=== PATIENT | male | born 1985 | race Caucasian/White ===

== ENCOUNTER 2020-03-26 15:25 | Inpatient (IN) | payer OTHER, MEDICAID, SELFPAY ==
[2020-03-26] VITALS (17 sets, daily range): BP systolic 113–147; BP diastolic 67–99; PULSE 55–103; RESP 15–23; TEMP 36.4–36.8; O2SAT 95–100; BMI 24.3
--- NOTE | 2020-03-26 16:12 | ED_ITS ---
HPI - Dizziness <Chrystal Weldon DO - Last Filed: 03/27/20 07:22> General Chief Complaint: Dizziness Stated Complaint: falling over cant stand Time Seen by Provider: 03/26/20 15:39 Source: patient Mode of arrival: Wheelchair Limitations: no limitations History of Present Illness HPI Narrative: Patient is a 34-year-old male who presents with dizziness. He has a history of IVDA both heroin and methamphetamines. He states he has been clean for 11 days and just got out of rehab. Last night around 7:45 p.m. he rolled over in bed got extremely dizzy. Now when he walks he feels extremely off balance. He denies any weakness he feels nauseated he has vomited a couple times. He denies any fever. However it is complicated because he is going through detox. He has been through detox few times in the past previously on Suboxone but not on any medications this time. Looking to go to a inpatient 4 month stay in [place]. If he remains still he is not dizzy. He also states the over the last 3 years he cannot walk or run without collapsing. He feels like his heart lb get short of breath he collapses. That is not new today. Resting and sitting in the emergency department he denies any shortness of breath. Related Data Home Medications Medication Instructions Recorded Confirmed No Known Home Medications 03/26/20 03/26/20 Allergies Allergy/AdvReac Type Severity Reaction Status Date / Time No Known Drug Allergies Allergy Verified 03/26/20 15:34 Review of Systems <DO Lauro West Last Filed: 03/27/20 07:22> Review of Systems ROS Unobtainable: All systems reviewed & are unremarkable except as noted in HPI and below Constitutional Constitutional: Denies chills, Denies fever(s), Denies lethargy and Denies weak ness Eyes Eyes: Denies blurry vision, Denies exophthalmos, Denies diplopia and Denies eye discharge ENT Ears, Nose, Mouth, and Throat: Denies change in voice, Denies vertigo, Denies neck pain and Denies sore throat Cardiovascular Cardiovascular: Reports as per HPI, Reports lightheadedness, Denies dyspnea and Reports dyspnea on exertion Respiratory Respiratory: Reports as per HPI, Denies cough, Denies dyspnea, Reports dyspnea on exertion and Denies wheezing Gastrointestinal Gastrointestinal: Reports nausea and Reports vomiting Musculoskeletal Musculoskeletal: Denies back pain and Denies neck pain Integumentary/Breasts Skin/Breast: Denies pruritus, Denies erythema, Denies rash and Denies wounds Neurologic Neurologic: Denies confusion, Denies vertigo and Denies weakness Psychiatric Psychiatric: Denies confusion Allergic/Immunologic Allergic/Immunologic: Denies wheezing Patient History <Chrystal Weldon DO - Last Filed: 03/27/20 07:22> Medical History (Updated 03/27/20 @ 00:59 by DELTA Buenrostro-PORFIRIO) Heroin use disorder, mild, in early remission, abuse History of intravenous drug use in remission Methamphetamine abuse in remission Wound, surgical, infected Surgical History (Updated 03/27/20 @ 00:52 by DELTA Buenrostro-PORFIRIO) History of incision and drainage Family History (Updated 03/27/20 @ 00:54 by DELTA Buenrostro-PORFIROI) Father Stroke Hypertension Hyperlipidemia Mother Congestive heart failure Diabetes mellitus Hyperlipidemia Hypertension Social History household members: family Smoking Status: Never smoker alcohol intake: never Smoking Status: Never smoker Substance Use Type: former substance user Exam <Chrystal Weldon DO - Last Filed: 03/27/20 07:22> Initial Vital Signs Initial Vital Signs: Vital Signs Temperature 97.6 F 03/26/20 15:31 Pulse Rate 103 H 03/26/20 15:31 Respiratory Rate 20 03/26/20 15:31 Blood Pressure 139/99 H 03/26/20 15:31 Pulse Oximetry 98 03/26/20 15:31 GENERAL: Alert young male HEENT: Head atraumatic,EOMI, pupils reactive, face symmetric, moist mucous membranes CARDIOVASCULAR: Regular rate and rhythm without murmurs, rubs or gallops. RESPIRATORY: Breath sounds equal bilaterally, no wheezes rales or rhonchi. ABDOMEN: Soft, nontender. Normoactive bowel sounds all 4 quadrants. No guarding or rebound. EXTREMITIES: Normal range of motion, no clubbing or edema. Neurovascularly i ntact NEUROLOGICAL: Alert and oriented x4.Normal gait and speech. Cranial nerves II through XII grossly intact. 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 <Adrian Rojas DO - Last Filed: 03/27/20 04:23> Initial Vital Signs Initial Vital Signs: Vital Signs Temperature 97.6 F 03/26/20 15:31 Pulse Rate 103 H 03/26/20 15:31 Respiratory Rate 20 03/26/20 15:31 Blood Pressure 139/99 H 03/26/20 15:31 Pulse Oximetry 98 03/26/20 15:31 Scores <Chrystal Weldon DO - Last Filed: 03/27/20 07:22> NIH Stroke Scale Level of Conciousness: Alert, keenly responsive Ask month/age: Answers both questions correctly. Open/close eyes, close hand: Performs both tasks correctly Best gaze horizontal: Normal Visual schwartz: No visual loss Facial palsy: Normal symetrical movement Left arm drift: Drifts down, not to bed Right arm drift: No drift for full 10 sec Left leg drift: No drift for full 5 sec Right leg drift: No drift for full 5 sec Limb ataxia: Present in one limb Sensory on face/arms/legs: Normal, no sensory loss Best language: No aphasia, normal Dysarthria: Normal Extinction or inattention: No abnormality Total NIH Stroke scale score: 2 Course <Chrystal Weldon, DO - Last Filed: 03/27/20 07:22> Orders Ordered: Acetaminophen (Acetaminophen 325 Mg Tablet) 650 mg PO Q6HR PRN PRN Reason: Fever/Mild Pain (1-3) Aspirin (Aspirin Ec 81 Mg Tablet) 81 mg PO DAILY [facility] Atorvastatin Calcium (Atorvastatin 20 Mg Tablet) 80 mg PO BEDTIME [facility] Last Admin: 03/26/20 23:57 Dose: 80 mg Documented by: Calcium Carbonate (Calcium Carbonate 500 Mg Tab) 1,000 mg PO Q4HR PRN PRN Reason: Dyspepsia Clopidogrel Bisulfate (Clopidogrel 75 Mg Tablet) 75 mg PO DAILY [facility] Docusate Sodium (Docusate 100 Mg Capsule) 100 mg PO BID PRN PRN Reason: constipation Sodium Chloride (Normal Saline 0.9%) 1,000 mls @ 1,000 mls/hr IV CONT [facility] Last Infusion: 03/26/20 19:50 Dose: Infused Documented by: Naloxone HCl (Naloxone 0.4 Mg/Ml Vial) 0.2 mg IV Q2MIN PRN PRN Reason: Opiate Reversal Ondansetron HCl (Ondansetron 4 Mg Odt) 4 mg PO Q8HR PRN PRN Reason: Nausea And Vomiting Oxycodone/Acetaminophen (Oxycodone/Acetaminophen 5/325 Tablet) 1 tab PO Q4HR PRN PRN Reason: Pain, Moderate (4-6) Sennosides (Sennosides 8.6 Mg Tablet) 17.2 mg PO BEDTIME PRN PRN Reason: constipation Sodium Chloride (Sodium Chloride 0.9% Flush) 10 ml IV PRN PRN PRN Reason: Flush Sodium Chloride (Sodium Chloride 0.9% Flush) 10 ml IV BID NELY Discontinued Medications Acetaminophen (Acetaminophen 325 Mg Tablet) 975 mg PO NOW ONE Stop: 03/26/20 18:51 Last Admin: 03/26/20 19:09 Dose: 975 mg Documented by: Acetaminophen (Acetaminophen 325 Mg Tablet) 650 mg PO Q6HR PRN PRN Reason: Pain, Mild (1-3) Aspirin (Aspirin 81 Mg Chew Tab) 324 mg PO NOW ONE Stop: 03/26/20 18:08 Last Admin: 03/26/20 18:51 Dose: 324 mg Documented by: Lorazepam (Lorazepam 2 Mg/Ml Inj) 1 mg IV NOW ONE Stop: 03/26/20 18:51 Last Admin: 03/26/20 19:09 Dose: 1 mg Documented by: Meclizine HCl (Meclizine Hcl 12.5 Mg Tablet) 25 mg PO NOW ONE Stop: 03/26/20 16:13 Last Admin: 03/26/20 17:30 Dose: Not Given Documented by: Ondansetron HCl (Ondansetron 4 Mg/2 Ml Inj) 4 mg IV NOW ONE Stop: 03/26/20 16:13 Last Admin: 03/26/20 18:52 Dose: 4 mg Documented by: Vital Signs Vital signs: Vital Signs - 8 hr 03/26/20 20:30 03/26/20 20:38 03/26/20 21:00 Pulse Rate 64 62 65 Blood Pressure 123/91 H 113/68 114/67 Pulse Oximetry 100 100 100 03/26/20 21:30 03/26/20 22:00 03/26/20 22:01 Pulse Rate 58 L 56 L 55 L Blood Pressure 131/90 119/77 Pulse Oximetry 100 100 100 <Adrian Rojas, DO - Last Filed: 03/27/20 04:23> Course Course Narrative: Received from Dr. Weldon to follow up on MRI. I did not get a chance to examine the patient before going upstairs, but i did follow up on the MRI and relay findings to hospitalist who was happy to accept. Orders Ordered: Acetaminophen (Acetaminophen 325 Mg Tablet) 650 mg PO Q6HR PRN PRN Reason: Fever/Mild Pain (1-3) Aspirin (Aspirin Ec 81 Mg Tablet) 81 mg PO DAILY [facility] Atorvastatin Calcium (Atorvastatin 20 Mg Tablet) 80 mg PO BEDTIME [facility] Last Admin: 03/26/20 23:57 Dose: 80 mg Documented by: Calcium Carbonate (Calcium Carbonate 500 Mg Tab) 1,000 mg PO Q4HR PRN PRN Reason: Dyspepsia Clopidogrel Bisulfate (Clopidogrel 75 Mg Tablet) 75 mg PO DAILY [facility] Docusate Sodium (Docusate 100 Mg Capsule) 100 mg PO BID PRN PRN Reason: constipation Sodium Chloride (Normal Saline 0.9%) 1,000 mls @ 1,000 mls/hr IV CONT [facility] Last Infusion: 03/26/20 19:50 Dose: Infused Documented by: Naloxone HCl (Naloxone 0.4 Mg/Ml Vial) 0.2 mg IV Q2MIN PRN PRN Reason: Opiate Reversal Ondansetron HCl (Ondansetron 4 Mg Odt) 4 mg PO Q8HR PRN PRN Reason: Nausea And Vomiting Oxycodone/Acetaminophen (Oxycodone/Acetaminophen 5/325 Tablet) 1 tab PO Q4HR PRN PRN Reason: Pain, Moderate (4-6) Sennosides (Sennosides 8.6 Mg Tablet) 17.2 mg PO BEDTIME PRN PRN Reason: constipation Sodium Chloride (Sodium Chloride 0.9% Flush) 10 ml IV PRN PRN PRN Reason: Flush Sodium Chloride (Sodium Chloride 0.9% Flush) 10 ml IV BID [facility] Discontinued Medications Acetaminophen (Acetaminophen 325 Mg Tablet) 975 mg PO NOW ONE Stop: 03/26/20 18:51 Last Admin: 03/26/20 19:09 Dose: 975 mg Documented by: Acetaminophen (Acetaminophen 325 Mg Tablet) 650 mg PO Q6HR PRN PRN Reason: Pain, Mild (1-3) Aspirin (Aspirin 81 Mg Chew Tab) 324 mg PO NOW ONE Stop: 03/26/20 18:08 Last Admin: 03/26/20 18:51 Dose: 324 mg Documented by: Lorazepam (Lorazepam 2 Mg/Ml Inj) 1 mg IV NOW ONE Stop: 03/26/20 18:51 Last Admin: 03/26/20 19:09 Dose: 1 mg Documented by: Meclizine HCl (Meclizine Hcl 12.5 Mg Tablet) 25 mg PO NOW ONE Stop: 03/26/20 16:13 Last Admin: 03/26/20 17:30 Dose: Not Given Documented by: Ondansetron HCl (Ondansetron 4 Mg/2 Ml Inj) 4 mg IV NOW ONE Stop: 03/26/20 16:13 Last Admin: 03/26/20 18:52 Dose: 4 mg Documented by: Vital Signs Vital signs: Vital Signs - 8 hr 03/26/20 20:30 03/26/20 20:38 03/26/20 21:00 Pulse Rate 64 62 65 Blood Pressure 123/91 H 113/68 114/67 Pulse Oximetry 100 100 100 03/26/20 21:30 03/26/20 22:00 03/26/20 22:01 Pulse Rate 58 L 56 L 55 L Blood Pressure 131/90 119/77 Pulse Oximetry 100 100 100 MDM - Dizziness <Chrystal Weldon, - Last Filed: 03/27/20 07:22> Lab Data Attestation: I reviewed the patient's lab results. Result diagrams: 03/26/20 17:00 03/26/20 17:00 Labs: Lab Results 03/26/20 03/26/20 03/26/20 Range/Units 00:13 17:00 17:00 WBC 8.6 (4.5-11.0) X10^3/uL RBC 5.23 (4.5-5.9) X10^6/uL Hgb 15.9 (13.5-17.5) g/dL Hct 45.5 (41-53) % MCV 87.1 (80-100) fL MCH 30.5 (26-34) PG MCHC 35.0 (30-36) % RDW 13.2 (11.6-14.8) % Plt Count 314 (150-400) X10^3/uL Neut % (Auto) 73.3 (50-75) % Lymph % (Auto) 18.5 L (25-40) % [place] % (Auto) 6.9 (3-14) % Eos % (Auto) 0.7 L (2-4) % Baso % (Auto) 0.6 (0-2) % Neut # (Auto) 6300 (4922-5135) /uL Lymph # (Auto) 1600 (8599-8255) /uL [place] # (Auto) 600 (0-900) /uL Eos # (Auto) 100 (0-450) /uL Baso # (Auto) 0 (0-100) /uL PT 12.7 (10.1-12.7) SECONDS INR 1.1 (0.9-1.3) APTT 31 (26.4-36.2) SECONDS D-Dimer < 200 (<230) ng/mL ABG pH 7.41 (7.35-7.45) ABG pCO2 37.9 (35-45) mmHg ABG pO2 103 H (80-100) mmHg ABG HCO3 24 (22-26) mmol/L ABG Total CO2 25 (21-31) mmol/L ABG O2 Saturation 98 (95-100) % ABG Base Excess -1.0 (-2-2) mmol/L FiO2 21 Sodium (137-145) mmol/L Potassium (3.4-5.1) mmol/L Chloride (98-107) mmol/L Carbon Dioxide (22-32) mmol/L BUN (9-20) mg/dL Creatinine (0.66-1.25) mg/dL Estimated GFR (>60) mL/min BUN/Creatinine Ratio (6-22) Glucose (70-100) mg/dL Hemoglobin A1c (4.0-6.0) % Lactate (0.7-2.1) mmol/L Calcium (8.4-10.2) mg/dL Total Bilirubin (0.2-1.3) mg/dL AST (17-59) IU/L ALT (<50) IU/L Alkaline Phosphatase (38-126) U/L Total Creatine Kinase (55-170) U/L CK-MB (CK-2) CK-MB (CK-2) Rel Index Troponin I (0.01-0.034) ng/mL Total Protein (6.3-8.2) g/dL Albumin (3.5-5.0) g/dL Globulin (1.7-4.1) g/dL Albumin/Globulin Ratio (1.0-2.8) TSH (0.47-4.68) uIU/mL U Opiates 300ng/mL cut (Negative) Ur Oxycodone Screen (Negative) Urine Methadone Screen (Negative) Ur Barbiturates Screen (Negative) U Tricyclic Antidepress (Negative) Ur Phencyclidine Scrn (Negative) Ur Amphetamines Screen (Negative) U Methamphetamines Scrn (Negative) Ur MDMA Scrn (Ecstasy) (Negative) U Benzodiazepines Scrn (Negative) Urine Cocaine Screen (Negative) U Marijuana (THC) Screen (Negative) COVID-19 PCR (Negative) 03/26/20 03/26/20 03/26/20 Range/Units 17:00 17:00 17:00 WBC (4.5-11.0) X10^3/uL RBC (4.5-5.9) X10^6/uL Hgb (13.5-17.5) g/dL Hct (41-53) % MCV (80-100) fL MCH (26-34) PG MCHC (30-36) % RDW (11.6-14.8) % Plt Count (150-400) X10^3/uL Neut % (Auto) (50-75) % Lymph % (Auto) (25-40) % [place] % (Auto) (3-14) % Eos % (Auto) (2-4) % Baso % (Auto) (0-2) % Neut # (Auto) (0882-1713) /uL Lymph # (Auto) (4080-9198) /uL [place] # (Auto) (0-900) /uL Eos # (Auto) (0-450) /uL Baso # (Auto) (0-100) /uL PT (10.1-12.7) SECONDS INR (0.9-1.3) APTT (26.4-36.2) SECONDS D-Dimer (<230) ng/mL ABG pH (7.35-7.45) ABG pCO2 (35-45) mmHg ABG pO2 (80-100) mmHg ABG HCO3 (22-26) mmol/L ABG Total CO2 (21-31) mmol/L ABG O2 Saturation (95-100) % ABG Base Excess (-2-2) mmol/L FiO2 Sodium 139 (137-145) mmol/L Potassium 3.9 (3.4-5.1) mmol/L Chloride 103 (98-107) mmol/L Carbon Dioxide 32 (22-32) mmol/L BUN 15 (9-20) mg/dL Creatinine 0.76 (0.66-1.25) mg/dL Estimated GFR > 60.0 (>60) mL/min BUN/Creatinine Ratio 19.7 (6-22) Glucose 120 H (70-100) mg/dL Hemoglobin A1c 5.2 (4.0-6.0) % Lactate 1.9 (0.7-2.1) mmol/L Calcium 9.2 (8.4-10.2) mg/dL Total Bilirubin 0.9 (0.2-1.3) mg/dL AST 24 (17-59) IU/L ALT 22 (<50) IU/L Alkaline Phosphatase 73 (38-126) U/L Total Creatine Kinase 45 L (55-170) U/L CK-MB (CK-2) TNP CK-MB (CK-2) Rel Index TNP Troponin I < 0.012 (0.01-0.034) ng/mL Total Protein 8.6 H (6.3-8.2) g/dL Albumin 4.5 (3.5-5.0) g/dL Globulin 4.1 (1.7-4.1) g/dL Albumin/Globulin Ratio 1.1 (1.0-2.8) TSH (0.47-4.68) uIU/mL U Opiates 300ng/mL cut (Negative) Ur Oxycodone Screen (Negative) Urine Methadone Screen (Negative) Ur Barbiturates Screen (Negative) U Tricyclic Antidepress (Negative) Ur Phencyclidine Scrn (Negative) Ur Amphetamines Screen (Negative) U Methamphetamines Scrn (Negative) Ur MDMA Scrn (Ecstasy) (Negative) U Benzodiazepines Scrn (Negative) Urine Cocaine Screen (Negative) U Marijuana (THC) Screen (Negative) COVID-19 PCR (Negative) 12/18/20 12/18/20 12/18/20 Range/Units 17:00 19:16 20:57 WBC (4.5-11.0) X10^3/uL RBC (4.5-5.9) X10^6/uL Hgb (13.5-17.5) g/dL Hct (41-53) % MCV (80-100) fL MCH (26-34) PG MCHC (30-36) % RDW (11.6-14.8) % Plt Count (150-400) X10^3/uL Neut % (Auto) (50-75) % Lymph % (Auto) (25-40) % [place] % (Auto) (3-14) % Eos % (Auto) (2-4) % Baso % (Auto) (0-2) % Neut # (Auto) (3788-4052) /uL Lymph # (Auto) (1518-0867) /uL [place] # (Auto) (0-900) /uL Eos # (Auto) (0-450) /uL Baso # (Auto) (0-100) /uL PT (10.1-12.7) SECONDS INR (0.9-1.3) APTT (26.4-36.2) SECONDS D-Dimer (<230) ng/mL ABG pH (7.35-7.45) ABG pCO2 (35-45) mmHg ABG pO2 (80-100) mmHg ABG HCO3 (22-26) mmol/L ABG Total CO2 (21-31) mmol/L ABG O2 Saturation (95-100) % ABG Base Excess (-2-2) mmol/L FiO2 Sodium (137-145) mmol/L Potassium (3.4-5.1) mmol/L Chloride (98-107) mmol/L Carbon Dioxide (22-32) mmol/L BUN (9-20) mg/dL Creatinine (0.66-1.25) mg/dL Estimated GFR (>60) mL/min BUN/Creatinine Ratio (6-22) Glucose (70-100) mg/dL Hemoglobin A1c (4.0-6.0) % Lactate (0.7-2.1) mmol/L Calcium (8.4-10.2) mg/dL Total Bilirubin (0.2-1.3) mg/dL AST (17-59) IU/L ALT (<50) IU/L Alkaline Phosphatase (38-126) U/L Total Creatine Kinase (55-170) U/L CK-MB (CK-2) CK-MB (CK-2) Rel Index Troponin I (0.01-0.034) ng/mL Total Protein (6.3-8.2) g/dL Albumin (3.5-5.0) g/dL Globulin (1.7-4.1) g/dL Albumin/Globulin Ratio (1.0-2.8) TSH 1.01 (0.47-4.68) uIU/mL U Opiates 300ng/mL cut Negative (Negative) Ur Oxycodone Screen Negative (Negative) Urine Methadone Screen Negative (Negative) Ur Barbiturates Screen Negative (Negative) U Tricyclic Antidepress Negative (Negative) Ur Phencyclidine Scrn Negative (Negative) Ur Amphetamines Screen Negative (Negative) U Methamphetamines Scrn Negative (Negative) Ur MDMA Scrn (Ecstasy) Negative (Negative) U Benzodiazepines Scrn Negative (Negative) Urine Cocaine Screen Negative (Negative) U Marijuana (THC) Screen Positive H (Negative) COVID-19 PCR Negative (Negative) Point of Care Testing Glucose POC 115 Urine Dip Bedside Urine Glucose Negative Bedside Urine Bilirubin - Negative Bedside Urine Ketone - Negative Urine Specific [place] 1.015 Bedside Urine Occult Blood - Negative Bedside Urine pH 7.5 Bedside Urine Protein - Negative Bedside Urine Urobilinogen - Negative Bedside Urine Nitrite - Negative Bedside Urine Leukocytes - Negative Esterase Imaging Data Chest x-ray: Radiologist's Impression: PROCEDURE: XR CHEST 1V INDICATIONS: cva TECHNIQUE: One view of the chest was acquired. COMPARISON: None. FINDINGS: Surgical changes and devices: None. Lungs and pleura: Lungs are clear. No pleural effusions or pneumothorax. Mediastinum: Mediastinal contours appear normal. Heart size is normal. Bones and chest wall: No suspicious bony lesions. Overlying soft tissues appear unremarkable. IMPRESSION: No acute cardiopulmonary pathology. Dictated by: Raphael Farmer M.D. on 03/26/2020 at 18:52 CTA - brain/neck: Radiologist's Impression: PROCEDURE: CT ANGIO HEAD AND NECK INDICATIONS: cerebellum cva TECHNIQUE: Pre-contrast 4.5 mm thick sections acquired from the foramen magnum to the vertex. After the administration of intravenous contrast, 1 mm thick sections acquired from the aortic arch through the [place] of [place]. Post-contrast 4.5 mm thick sections then re-acquired from the foramen magnum to the vertex. 3-dimensional btqsfic-cmfjcsudw-bmehdptahh (MIP) and/or volume rendering reformats were acquired of the central intracranial vasculature and neck separately. COMPARISON: [facility], CT, CT HEAD/BRAIN WO CON, 03/26/2020, 16:15. FINDINGS: Image quality: Excellent. BRAIN: CSF spaces: Ventricles are normal in size and shape. Basal cisterns are patent. No extra-axial fluid collections. Brain: No midline shift. No intracranial bleeds or masses. [place]-white matter interface appears intact. Previously CT brain finding of superior inferior left cerebellar hemisphere hypodensities are again noted and show no abnormal contrast enhan cement. Skull and face: Calvarium and facial bones appear intact, without suspicious lesions. Orbits appear normal. Sinuses: Sinuses and mastoids are clear. HEAD CT ANGIOGRAPHY: Anterior circulation: Intracranial internal carotid arteries are normal in size and flow. The flow within the paired anterior cerebral arteries is normal and symmetric. The flow within the middle cerebral arteries is normal and symmetric. The anterior communicating artery is seen. No aneurysms are seen. Posterior circulation: Visualized portions of the vertebral arteries demonstrate normal caliber, and join to form a normal appearing basilar artery. Flow within the posterior cerebral arteries is normal and symmetric. No aneurysms are seen. NECK CT ANGIOGRAPHY: Carotid system: The great vessels demonstrate a conventional anatomy as they arise from the aortic arch. The origins of the common carotid arteries appear patent. The common carotid arteries demonstrate normal caliber and courses. The bifurcation regions are both widely patent. The internal carotid arteries demonstrate normal calibers and courses. Posterior circulation: The origins of the vertebral arteries both appear widely patent. The more superior extracranial portions of both vertebral arteries also demonstr ate normal courses and calibers. They join to form a normal appearing basilar artery. Soft tissues: Visualized neck soft tissues demonstrate no suspicious abnormalities. Bones: No suspicious bony lesions. Visualized cervical spine appears normally aligned. IMPRESSION: 1. No hemodynamically significant stenosis or aneurysm is seen in intracranial circulation. 2. No hemodynamically significant stenosis is seen in bilateral neck arteries. 3. Again noted are ill-defined hypodensities in inferior and superior left cerebellar hemisphere unchanged from earlier CT of brain study and show no contrast enhancement. Finding may represent infarction or infection. Neoplasm is less likely. Any quantitative measurements of stenosis were performed using NASCET criteria. Dictated by: Raphael Farmer M.D. on 03/26/2020 at 17:50 CT scan - head: Radiologist's Impression: PROCEDURE: CT HEAD/BRAIN WO CON INDICATIONS: dizzy TECHNIQUE: Noncontrast 4.5 mm thick angled axial sections acquired from the foramen magnum to the vertex, with coronal and sagittal reformats. For radiation dose reduction, the following was used: automated exposure control, adjustment of mA and/or kV according to patient size. COMPARISON: None. FINDINGS: Image quality: Excellent. CSF spaces: Basal cisterns are patent. No extra-axial fluid collections. Ventricles are normal in size and shape. Brain: Hypodensity noted in the inferior aspect of the left cerebellar hemisphere. No midline shift. No intracranial masses or hemorrhage. [place]-white matter interface is normal. Skull and face: Calvarium and visualized facial bones are intact, without suspicious lesions. Sinuses: Visualized sinuses and mastoids are clear. IMPRESSION: 1. Hypodensities in the inferior and superior left cerebellar hemisphere which could represent infarcts, infection or less likely neoplasm. Recommend MRI of the bra in with without contrast for further evaluation. 2. No intracranial hemorrhage. Findings and recommendations discussed with Dr. Weldon on March 26, 2020 at 4:37 p.m.. Dictated by: Selam Pham MD, PhD on 03/26/2020 at 16:33 ECG Data Attestation: I personally reviewed and interpreted this ECG as follows: Prior ECG tracings: available for review Interpretation: Normal sinus rhythm rate 66 p.r. interval 180 QRS [address] changes or T-wave inversions MDM Narrative Medical decision making narrative: Patient is found have ataxia in his left upper extremity on exam. Concern for CVA. Head CT does confirm cerebellar stroke. CTA does not show any large vessel occlusion. I did discuss with Neurology Dr. Pat Mccormick agrees MR and stroke Dr. Yip, Hospitalist would like to wait for MRI results before accepting possibility of infectious. Patient signed out to Dr. Rojas for further management <Adrian Rojas, - Last Filed: 03/27/20 04:23> Lab Data Labs: Lab Results 03/26/20 03/26/20 03/26/20 Range/Units 00:13 17:00 17:00 WBC 8.6 (4.5-11.0) X10^3/uL RBC 5.23 (4.5-5.9) X10^6/uL Hgb 15.9 (13.5-17.5) g/dL Hct 45.5 (41-53) % MCV 87.1 (80-100) fL MCH 30.5 (26-34) PG MCHC 35.0 (30-36) % RDW 13.2 (11.6-14.8) % Plt Count 314 (150-400) X10^3/uL Neut % (Auto) 73.3 (50-75) % Lymph % (Auto) 18.5 L (25-40) % [place] % (Auto) 6.9 (3-14) % Eos % (Auto) 0.7 L (2-4) % Baso % (Auto) 0.6 (0-2) % Neut # (Auto) 6300 (5767-1594) /uL Lymph # (Auto) 1600 (1219-1022) /uL [place] # (Auto) 600 (0-900) /uL Eos # (Auto) 100 (0-450) /uL Baso # (Auto) 0 (0-100) /uL PT 12.7 (10.1-12.7) SECONDS INR 1.1 (0.9-1.3) APTT 31 (26.4-36.2) SECONDS D-Dimer < 200 (<230) ng/mL ABG pH 7.41 (7.35-7.45) ABG pCO2 37.9 (35-45) mmHg ABG pO2 103 H (80-100) mmHg ABG HCO3 24 (22-26) mmol/L ABG Total CO2 25 (21-31) mmol/L ABG O2 Saturation 98 (95-100) % ABG Base Excess -1.0 (-2-2) mmol/L FiO2 21 Sodium (137-145) mmol/L Potassium (3.4-5.1) mmol/L Chloride (98-107) mmol/L Carbon Dioxide (22-32) mmol/L BUN (9-20) mg/dL Creatinine (0.66-1.25) mg/dL Estimated GFR (>60) mL/min BUN/Creatinine Ratio (6-22) Glucose (70-100) mg/dL Hemoglobin A1c (4.0-6.0) % Lactate (0.7-2.1) mmol/L Calcium (8.4-10.2) mg/dL Total Bilirubin (0.2-1.3) mg/dL AST (17-59) IU/L ALT (<50) IU/L Alkaline Phosphatase (38-126) U/L Total Creatine Kinase (55-170) U/L CK-MB (CK-2) CK-MB (CK-2) Rel Index Troponin I (0.01-0.034) ng/mL Total Protein (6.3-8.2) g/dL Albumin (3.5-5.0) g/dL Globulin (1.7-4.1) g/dL Albumin/Globulin Ratio (1.0-2.8) TSH (0.47-4.68) uIU/mL U Opiates 300ng/mL cut (Negative) Ur Oxycodone Screen (Negative) Urine Methadone Screen (Negative) Ur Barbiturates Screen (Negative) U Tricyclic Antidepress (Negative) Ur Phencyclidine Scrn (Negative) Ur Amphetamines Screen (Negative) U Methamphetamines Scrn (Negative) Ur MDMA Scrn (Ecstasy) (Negative) U Benzodiazepines Scrn (Negative) Urine Cocaine Screen (Negative) U Marijuana (THC) Screen (Negative) COVID-19 PCR (Negative) 03/26/20 03/26/20 03/26/20 Range/Units 17:00 17:00 17:00 WBC (4.5-11.0) X10^3/uL RBC (4.5-5.9) X10^6/uL Hgb (13.5-17.5) g/dL Hct (41-53) % MCV (80-100) fL MCH (26-34) PG MCHC (30-36) % RDW (11.6-14.8) % Plt Count (150-400) X10^3/uL Neut % (Auto) (50-75) % Lymph % (Auto) (25-40) % [place] % (Auto) (3-14) % Eos % (Auto) (2-4) % Baso % (Auto) (0-2) % Neut # (Auto) (5199-6663) /uL Lymph # (Auto) (4851-2546) /uL [place] # (Auto) (0-900) /uL Eos # (Auto) (0-450) /uL Baso # (Auto) (0-100) /uL PT (10.1-12.7) SECONDS INR (0.9-1.3) APTT (26.4-36.2) SECONDS D-Dimer (<230) ng/mL ABG pH (7.35-7.45) ABG pCO2 (35-45) mmHg ABG pO2 (80-100) mmHg ABG HCO3 (22-26) mmol/L ABG Total CO2 (21-31) mmol/L ABG O2 Saturation (95-100) % ABG Base Excess (-2-2) mmol/L FiO2 Sodium 139 (137-145) mmol/L Potassium 3.9 (3.4-5.1) mmol/L Chloride 103 (98-107) mmol/L Carbon Dioxide 32 (22-32) mmol/L BUN 15 (9-20) mg/dL Creatinine 0.76 (0.66-1.25) mg/dL Estimated GFR > 60.0 (>60) mL/min BUN/Creatinine Ratio 19.7 (6-22) Glucose 120 H (70-100) mg/dL Hemoglobin A1c 5.2 (4.0-6.0) % Lactate 1.9 (0.7-2.1) mmol/L Calcium 9.2 (8.4-10.2) mg/dL Total Bilirubin 0.9 (0.2-1.3) mg/dL AST 24 (17-59) IU/L ALT 22 (<50) IU/L Alkaline Phosphatase 73 (38-126) U/L Total Creatine Kinase 45 L (55-170) U/L CK-MB (CK-2) TNP CK-MB (CK-2) Rel Index TNP Troponin I < 0.012 (0.01-0.034) ng/mL Total Protein 8.6 H (6.3-8.2) g/dL Albumin 4.5 (3.5-5.0) g/dL Globulin 4.1 (1.7-4.1) g/dL Albumin/Globulin Ratio 1.1 (1.0-2.8) TSH (0.47-4.68) uIU/mL U Opiates 300ng/mL cut (Negative) Ur Oxycodone Screen (Negative) Urine Methadone Screen (Negative) Ur Barbiturates Screen (Negative) U Tricyclic Antidepress (Negative) Ur Phencyclidine Scrn (Negative) Ur Amphetamines Screen (Negative) U Methamphetamines Scrn (Negative) Ur MDMA Scrn (Ecstasy) (Negative) U Benzodiazepines Scrn (Negative) Urine Cocaine Screen (Negative) U Marijuana (THC) Screen (Negative) COVID-19 PCR (Negative) 03/26/20 03/26/20 03/26/20 Range/Units 17:00 19:16 20:57 WBC (4.5-11.0) X10^3/uL RBC (4.5-5.9) X10^6/uL Hgb (13.5-17.5) g/dL Hct (41-53) % MCV (80-100) fL MCH (26-34) PG MCHC (30-36) % RDW (11.6-14.8) % Plt Count (150-400) X10^3/uL Neut % (Auto) (50-75) % Lymph % (Auto) (25-40) % [place] % (Auto) (3-14) % Eos % (Auto) (2-4) % Baso % (Auto) (0-2) % Neut # (Auto) (3671-5680) /uL Lymph # (Auto) (9146-1077) /uL [place] # (Auto) (0-900) /uL Eos # (Auto) (0-450) /uL Baso # (Auto) (0-100) /uL PT (10.1-12.7) SECONDS INR (0.9-1.3) APTT (26.4-36.2) SECONDS D-Dimer (<230) ng/mL ABG pH (7.35-7.45) ABG pCO2 (35-45) mmHg ABG pO2 (80-100) mmHg ABG HCO3 (22-26) mmol/L ABG Total CO2 (21-31) mmol/L ABG O2 Saturation (95-100) % ABG Base Excess (-2-2) mmol/L FiO2 Sodium (137-145) mmol/L Potassium (3.4-5.1) mmol/L Chloride (98-107) mmol/L Carbon Dioxide (22-32) mmol/L BUN (9-20) mg/dL Creatinine (0.66-1.25) mg/dL Estimated GFR (>60) mL/min BUN/Creatinine Ratio (6-22) Glucose (70-100) mg/dL Hemoglobin A1c (4.0-6.0) % Lactate (0.7-2.1) mmol/L Calcium (8.4-10.2) mg/dL Total Bilirubin (0.2-1.3) mg/dL AST (17-59) IU/L ALT (<50) IU/L Alkaline Phosphatase (38-126) U/L Total Creatine Kinase (55-170) U/L CK-MB (CK-2) CK-MB (CK-2) Rel Index Troponin I (0.01-0.034) ng/mL Total Protein (6.3-8.2) g/dL Albumin (3.5-5.0) g/dL Globulin (1.7-4.1) g/dL Albumin/Globulin Ratio (1.0-2.8) TSH 1.01 (0.47-4.68) uIU/mL U Opiates 300ng/mL cut Negative (Negative) Ur Oxycodone Screen Negative (Negative) Urine Methadone Screen Negative (Negative) Ur Barbiturates Screen Negative (Negative) U Tricyclic Antidepress Negative (Negative) Ur Phencyclidine Scrn Negative (Negative) Ur Amphetamines Screen Negative (Negative) U Methamphetamines Scrn Negative (Negative) Ur MDMA Scrn (Ecstasy) Negative (Negative) U Benzodiazepines Scrn Negative (Negative) Urine Cocaine Screen Negative (Negative) U Marijuana (THC) Screen Positive H (Negative) COVID-19 PCR Negative (Negative) Point of Care Testing Glucose POC 115 Urine Dip Bedside Urine Glucose Negative Bedside Urine Bilirubin - Negative Bedside Urine Ketone - Negative Urine Specific [place] 1.015 Bedside Urine Occult Blood - Negative Bedside Urine pH 7.5 Bedside Urine Protein - Negative Bedside Urine Urobilinogen - Negative Bedside Urine Nitrite - Negative Bedside Urine Leukocytes - Negative Esterase Discharge Plan Departure Patient Disposition: Admitted As Inpatient Clinical Impression: Cerebellar stroke Admit Date/Time: 03/26/20 22:14 Admit Provider: Lisa Infante
--- NOTE | 2020-03-26 16:38 | DI.CT.S_ITS ---
PROCEDURE: CT ANGIO HEAD AND NECK INDICATIONS: cerebellum cva TECHNIQUE: Pre-contrast 4.5 mm thick sections acquired from the foramen magnum to the vertex. After the administration of intravenous contrast, 1 mm thick sections acquired from the aortic arch through the [place]. Post-contrast 4.5 mm thick sections then re-acquired from the foramen magnum to the vertex. 3-dimensional rimetld-wwtawplgn-glslrsgkwi (MIP) and/or volume rendering reformats were acquired of the central intracranial vasculature and neck separately. COMPARISON: Located Within [facility], CT, CT HEAD/BRAIN WO CON, 03/26/2020, 16:15. FINDINGS: Image quality: Excellent. BRAIN: CSF spaces: Ventricles are normal in size and shape. Basal cisterns are patent. No extra-axial fluid collections. Brain: No midline shift. No intracranial bleeds or masses. [place]-white matter interface appears intact. Previously CT brain finding of superior inferior left cerebellar hemisphere hypodensities are again noted and show no abnormal contrast enhancement. Skull and face: Calvarium and facial bones appear intact, without suspicious lesions. Orbits appear normal. Sinuses: Sinuses and mastoids are clear. HEAD CT ANGIOGRAPHY: Anterior circulation: Intracranial internal carotid arteries are normal in size and flow. The flow within the paired anterior cerebral arteries is normal and symmetric. The flow within the middle cerebral arteries is normal and symmetric. The anterior communicating artery is seen. No aneurysms are seen. Posterior circulation: Visualized portions of the vertebral arteries demonstrate normal caliber, and join to form a normal appearing basilar artery. Flow within the posterior cerebral arteries is normal and symmetric. No aneurysms are seen. NECK CT ANGIOGRAPHY: Carotid system: The great vessels demonstrate a conventional anatomy as they arise from the aortic arch. The origins of the common carotid arteries appear patent. The common carotid arteries demonstrate normal caliber and courses. The bifurcation regions are both widely patent. The internal carotid arteries demonstrate normal calibers and courses. Posterior circulation: The origins of the vertebral arteries both appear widely patent. The more superior extracranial portions of both vertebral arteries also demonstrate normal courses and calibers. They join to form a normal appearing basilar artery. Soft tissues: Visualized neck soft tissues demonstrate no suspicious abnormalities. Bones: No suspicious bony lesions. Visualized cervical spine appears normally aligned. IMPRESSION: 1. No hemodynamically significant stenosis or aneurysm is seen in intracranial circulation. 2. No hemodynamically significant stenosis is seen in bilateral neck arteries. 3. Again noted are ill-defined hypodensities in inferior and superior left cerebellar hemisphere unchanged from earlier CT of brain study and show no contrast enhancement. Finding may represent infarction or infection. Neoplasm is less likely. Any quantitative measurements of stenosis were performed using NASCET criteria. Dictated by: Raphael Farmer M.D. on 03/26/2020 at 17:50 Approved by: Raphael Farmer M.D. on 03/26/2020 at 17:54
[2020-03-26 17:17] LABS: Add Manual Diff / Slide Review NO; Basophils Absolute Auto 0 /uL (0-100); Basophils Percent Auto 0.6 % (0-2); Eosinophils Absolute Auto 100 /uL (0-450); Eosinophils Percent Auto 0.7 % (2-4); Hematocrit 45.5 % (41-53); Hemoglobin 15.9 g/dL (13.5-17.5); Lymphocytes Absolute Auto 1600 /uL (1100-4500); Lymphocytes Percent Auto 18.5 % (25-40); Mean Corpuscular Hemoglobin 30.5 PG (26-34); Mean Corpuscular Volume 87.1 fL (80-100); Monocytes Absolute Auto 600 /uL (0-900); Monocytes Percent Auto 6.9 % (3-14); Neutrophils Absolute Auto 6300 /uL (1500-7000); Neutrophils Percent Auto 73.3 % (50-75); Platelet Count 314 X10^3/uL (150-400); Red Blood Cell Count 5.23 X10^6/uL (4.5-5.9); Red Cell Distribution Width 13.2 % (11.6-14.8); White Blood Cell Count 8.6 X10^3/uL (4.5-11.0)
[2020-03-26 17:37] LABS: INR 1.1 (0.9-1.3); Lactate (Lactic Acid) 1.9 mmol/L (0.7-2.1); Prothrombin Time 12.7 SECONDS (10.1-12.7)
[2020-03-26 17:38] LABS: Alanine Aminotransferase 22 IU/L (<50); Albumin 4.5 g/dL (3.5-5.0); Albumin Globulin Ratio 1.1 (1.0-2.8); Alkaline Phosphatase 73 U/L (38-126); Aspartate Aminotransferase 24 IU/L (17-59); BUN Creatinine Ratio 19.7 (6-22); Bilirubin Total 0.9 mg/dL (0.2-1.3); Blood Urea Nitrogen 15 mg/dL (9-20); Calcium 9.2 mg/dL (8.4-10.2); Carbon Dioxide 32 mmol/L (22-32); Chloride 103 mmol/L (98-107); Creatine Kinase 45 U/L (55-170); Estimated Glomerular Filt Rate > 60.0 mL/min (>60); Globulin 4.1 g/dL (1.7-4.1); Glucose 120 mg/dL (70-100); HEMOLYSIS < 15 (0-50); Potassium 3.9 mmol/L (3.4-5.1); Sodium 139 mmol/L (137-145); Total Protein 8.6 g/dL (6.3-8.2)
[2020-03-26 17:40] LABS: PTT Partial Thromboplastin Tim 31 SECONDS (26.4-36.2)
[2020-03-26 17:43] LABS: D Dimer < 200 ng/mL (<230)
[2020-03-26 17:50] LABS: Troponin I < 0.012 ng/mL (0.01-0.034)
--- NOTE | 2020-03-26 18:07 | DI.MRI.S_ITS ---
PROCEDURE: MR STROKE Pre- and post-contrast brain MRI, non-contrast brain MR angiogram, pre- and postcontrast neck MR angiogram INDICATIONS: Dizziness. Abnormal CT head finding. TECHNIQUE: Brain: Noncontrast axial T1 spin echo, axial T2 fast spin echo, sagittal and axial FLAIR, coronal T2 fast spin echo, axial gradient echo, axial diffusion and ADC through the brain. After the administration of contrast, axial 3D VIBE of the cranial vasculature and brain. Brain MRA: Non-contrast 3-D time of flight MR angiogram, with multiple llnnuus-lhyliuvxv-amxinlrwrq (MIP) reformats performed. Neck MRA: Axial and sagittal TruFISP through the neck. Coronal dynamic MR angiogram during administration of contrast in the arterial and venous phases, with 3-dimenstional pecpuhq-umqsrgjtj-ekdsmkpxsw (MIP) reformats constructed from subtraction images. COMPARISON: [facility], CT, CT ANGIO HEAD AND NECK, 03/26/2020, 17:28. FINDINGS: Image quality: Excellent. BRAIN: CSF spaces: Ventricles are normal in size and shape. Basal cisterns are patent. No extra-axial fluid collections. Brain: No intracranial bleeds or mass effects. [place]-white matter interface is normal. Diffusion weighted images show multiple areas of restricted diffusion involving superior and inferior cortices of left cerebellum consistent with acute infarctions in left cerebellum. Brainstem appears normal. Normal intravascular flow voids are present. No abnormal intracranial enhancement. Skull and face: Calvarial marrow signal is normal. Orbits appear normal. Sinuses: Sinuses and mastoids are clear. BRAIN MR ANGIOGRAM: Anterior circulation: Intracranial internal carotid arteries are normal in size and enhancement. The flow within the paired anterior cerebral arteries is normal and symmetric. The flow within the middle cerebral arteries is normal and symmetric. The anterior communicating artery is seen. No stenoses, occlusions, or aneurysms. Posterior circulation: The visualized portions of the vertebral arteries demonstrate normal caliber, and join to form a normal appearing basilar artery. The flow within the posterior cerebral arteries is normal and symmetric. No stenoses, occlusions, or aneurysms. NECK MR ANGIOGRAM: Carotids: Great vessels demonstrate a conventional anatomy as they arise from the aortic arch. The origins of the common carotid arteries appear patent. The calibers and courses of both common carotid arteries are normal. The bifurcation regions appear normal bilaterally. The internal carotid arteries demonstrate normal course and caliber. Posterior circulation: The origins of the vertebral arteries appear patent. More superior portions of both vertebral arteries demonstrate normal course and caliber, and join to form a normal appearing basilar artery. Miscellaneous: Subclavian arteries appear patent. Pre-contrast images through the neck show no soft tissue abnormalities. IMPRESSION: BRAIN MRI: Multiple small acute infarctions scattered in superior and inferior cortex of left cerebellum. No infarction is seen in bilateral cerebral hemispheres. No intracranial bleed, midline shift or mass effect. No area of abnormal contrast enhancement. BRAIN MR ANGIOGRAM: No hemodynamically significant stenosis or aneurysm is seen in intracranial circulation. NECK MR ANGIOGRAM: No hemodynamically significant stenosis is noted in bilateral carotid arteries or vertebral arteries. Dictated by: Raphael Farmer M.D. on 03/26/2020 at 20:12 Approved by: Raphael Farmer M.D. on 03/26/2020 at 20:17
--- NOTE | 2020-03-26 18:19 | DI.RAD.S_ITS ---
PROCEDURE: XR CHEST 1V INDICATIONS: cva TECHNIQUE: One view of the chest was acquired. COMPARISON: None. FINDINGS: Surgical changes and devices: None. Lungs and pleura: Lungs are clear. No pleural effusions or pneumothorax. Mediastinum: Mediastinal contours appear normal. Heart size is normal. Bones and chest wall: No suspicious bony lesions. Overlying soft tissues appear unremarkable. IMPRESSION: No acute cardiopulmonary pathology. Dictated by: Raphael Farmer M.D. on 03/26/2020 at 18:52 Approved by: Raphael Farmer M.D. on 03/26/2020 at 18:52
[2020-03-26] MEDS: ASPIRIN 81 MG CHEW TAB 324 MG PO (18:51)
[2020-03-26] MEDS: SODIUM CHLORIDE 0.9% 1,000 ML 1000 ML IV (18:51)
[2020-03-26] MEDS: ONDANSETRON 4 MG/2 ML INJ IV (18:52)
[2020-03-26] MEDS: LORazepam 2 MG/ML INJ 1 MG IV (19:09)
[2020-03-26] MEDS: ACETAMINOPHEN 325 MG TABLET 975 MG PO (19:09)
[2020-03-26 19:42] LABS: COVID19 -Nasal RAPID Negative (Negative)
[2020-03-26 21:08] LABS: UR Morphine/Opiate cutoff 300 Negative (Negative); Ur Creatinine Normal (Normal); Ur Specific Gravity Normal (Normal); Urine Amphetamines Negative (Negative); Urine Barbiturates Negative (Negative); Urine Benzodiazepines Negative (Negative); Urine Cocaine Negative (Negative); Urine MDMA Negative (Negative); Urine Methadone Negative (Negative); Urine Methamphetamines Negative (Negative); Urine Oxycodone Negative (Negative); Urine Phencyclidine Negative (Negative); Urine Tetrahydrocannabinol Positive (Negative); Urine Tricyclic Antidepressant Negative (Negative); Urine pH Normal (Normal)
--- NOTE | 2020-03-26 22:31 | DI.ECHO.S_ITS ---
[facility] +---------+ : : [address] : : : : [id number] : : : : Phone: [phone]+ Echocardiogram Report + + :Name: ADINA OROZCO Study Date: 03/27/2020 Height: 77 in : :[facility] Weight: 205 lb : : Gender: Male BSA: 2.3 m2 : :: 1985 Age: 34 yrs BP: 141/92 mmHg: :Reason For Study: STROKE : :Ordering Physician: : :KARLI PEREIRA [employer]=BC Performed By: Reyna Bond : :Referring: KARLI PEREIRA : + + Interpretation Summary The left ventricle is normal in size. There is mild concentric left ventricular hypertrophy. Left ventricular systolic function appears normal without focal wall motion abnormalities. The ejection fraction is estimated to be 55-60%. Diastolic parameters suggest probable normal left ventricular diastolic function and normal filling pressures. The right ventricle is at the upper limits of normal in size. The right ventricular systolic function is normal. Pulmonary artery pressures cannot be estimated because of the lack of a measurable TR jet velocity but the IVC suggests a CVP of around 3 mmHg. The left atrium is mildly dilated. The right atrium is mildly dilated. There is no Doppler evidence for an interatrial shunt. Injection of contrast documented no interatrial shunt. There is no significant valvular heart disease. The ascending aorta is mildly enlarged. The aortic arch is mildly enlarged. Procedure: A two-dimensional transthoracic echocardiogram with color flow and Doppler was performed. The study quality was technically adequate. There is no prior echocardiogram noted for this patient. A saline contrast injection was performed to assess for cardiac shunting. The injection was performed through an intravenous line in the left arm. The patient was in sinus rhythm with heart rates between 59-74 bpm during the exam. Left Ventricle: The left ventricle is normal in size. There is mild concentric left ventricular hypertrophy. Left ventricular systolic function appears normal without focal wall motion abnormalities. The ejection fraction is estimated to be 55-60%. Diastolic parameters suggest probable normal left ventricular diastolic function and normal filling pressures. Right Ventricle: The right ventricle is at the upper limits of normal in size. The right ventricular systolic function is normal. Atria: The left atrium is mildly dilated. The right atrium is mildly dilated. There is no Doppler evidence for an interatrial shunt. Injection of contrast documented no interatrial shunt. Mitral Valve: The mitral valve is normal in structure and function. There is trace mitral regurgitation. Aortic Valve: The aortic valve is trileaflet. The aortic valve opens well. There is no aortic valve stenosis. No aortic regurgitation is present. Tricuspid Valve: The tricuspid valve is normal in structure and function. There is trace tricuspid regurgitation. Pulmonary artery pressures cannot be estimated because of the lack of a measurable TR jet velocity but the IVC suggests a CVP of around 3 mmHg. Pulmonic Valve: The pulmonic valve leaflets are thin and pliable; valve motion is normal. There is no pulmonic valvular regurgitation. There is no significant valvular heart disease. Great Vessels: The aortic root is normal size. The ascending aorta is mildly enlarged. The aortic arch is mildly enlarged. The IVC is of normal diameter and collapses greater than 50% with a sniff. This suggests a low right atrial pressure of 3 mm Hg. Pericardium/ Pleura There is no pericardial effusion. There is no pleural effusion. MMode/2D Measurements & Calculations LVIDd: 4.6 cm LVOT diam: 2.2 cm LVIDs: 2.9 cm Ao root diam: 3.5 cm FS: 36.5 % asc Aorta Diam: 3.7 cm EPSS: 0.67 cm Ao Arch Diam (Prox Trans): 3.5 cm IVSd: 1.3 cm LVPWd: 1.2 cm LV cross. diameter/BSA (cm/m^2): 2.0 LV sys. diameter/BSA (cm/m^2): 1.3 LA A2 area: 27.1 cm2 RA long axis: 6.1 cm LA A4 area: 24.3 cm2 RA area: 24.8 cm2 LA length (vol): 6.3 cm RA vol: 85.9 ml LA vol: 88.6 ml RA : 38.0 ml/m2 LA vol index: 39.2 ml/m2 IVC diam: 1.7 cm RVD1 (basal): 4.0 cm TAPSE: 2.3 cm Doppler Measurements & Calculations Ao V2 max: 121.7 cm/sec LVOT Max Josh: 110.7 cm/sec Ao V2 mean: 82.9 cm/sec LV V1 max P.9 mmHg Ao max P.9 mmHg LV V1 VTI: 20.1 cm Ao mean P.1 mmHg GENEVIEVE(I,D): 3.2 cm2 Ao V2 VTI: 23.0 cm GENEVIEVE(V,D): 3.4 cm2 sev ratio: 0.88 GENEVIEVE indexed to BSA (cm^2/m^2): 1.4 MV E max josh: 49.9 cm/sec PA V2 max: 75.9 cm/sec MV A max josh: 39.9 cm/sec PA V2 mean: 51.0 cm/sec MV E/A: 1.3 PA mean P.2 mmHg Med Peak E' Josh: 9.5 cm/sec PA pr(Accel): 31.0 mmHg E/E' med: 5.2 Lat Peak E' Josh: 13.2 cm/sec E/E' lat: 3.8 E/e' average: 4.5 MV dec time: 0.31 sec SV(LVOT): 74.7 ml Reading Physician:12:21 PM
[2020-03-26 22:53] LABS: Hemoglobin A1C% w Est Avg Glu 5.2 % (4.0-6.0)
[2020-03-26 23:20] LABS: Thyroid Stimulating Hormone 1.01 uIU/mL (0.47-4.68)
[2020-03-26] MEDS: ATORVASTATIN 20 MG TABLET 80 MG PO (23:57)
[2020-03-27] VITALS (11 sets, daily range): BP systolic 128–157; BP diastolic 80–98; PULSE 57–79; RESP 16–19; TEMP 36.8–37.3; O2SAT 94–100
[2020-03-27 00:23] LABS: Fractionated Inspired Oxygen 21; HCO3 ABG 24 mmol/L (22-26); Oxygen Saturation ABG 98 % (95-100); PCO2 ABG 37.9 mmHg (35-45); PO2 ABG 103 mmHg (80-100); TCO2 ABG 25 mmol/L (21-31); pH ABG 7.41 (7.35-7.45)
--- NOTE | 2020-03-27 00:43 | PM.HP.1 ---
History of Present Illness History of Present Illness Date Patient Seen: 03/26/20 Time Patient Seen: 22:29 Chief complaint: falling over cant stand Narrative: Patient is a 34-year-old male Suraj tracing presented to the emergency room complaining of dizziness. Patient states that last night approximately 7:45 p.m. he suddenly felt the room ?snapped in half , it was like a blackout and I face planted into every piece of furniture as I attempted to walk around at home ?. Patient continued to be symptomatic and then he had his sister drive him to the emergency room 330pm this afternoon. Patient reports that for the last 3 years he has been unable to walk up stairs, run or walk at a fast pace without collapsing. He has been experiencing nausea and vomiting chills and body aches, but he also notes that he is withdrawing from heroin and methamphetamine abuse of 12 years, as he is 11 days clean. Patient was released from detox after 5 days on March 21, 2020 and he is scheduled in April of 2020 to go to [place], [place] for an inpatient detox rehabilitation. Patient reports a history of infectious cellulitis that lead to septicemia of the left forearm that required hospitalization and surgical I&D in the past. Patient notes the only consistent symptom he has had is pain above the right eye pain continues to worsen and not improve with any the pain medication in the emergency room it is constant a sharp throbbing pain sensitivity to light and any motion or changes in position. Patient denies chest pain shortness of breath changes in vision any recent injury trauma or illness, abnormal bruising bleeding or infection, no changes to bowel or bladder, no changes in sensation, denies numbness tingling or muscle weakness. Head CT was negative for intracranial hemorrhage, brain MRI noted multiple small acute infarctions scattered in a superior and inferior cortex of the left cerebellum. Neck MR demonstrated no evidence of aneurysms or bilateral stenosis of carotid & vertebral arteries. Patient's D-dimer, troponin, and lactate were negative. PT 12.7 PTT 31 and INR 1.1 Drug screen was only positive for marijuana. ER consulted neurology concerning MR to rule out infectious (patient to be transferred) versus stroke (patient to be admitted) and echo to be ordered. In the emergency room patient had an NIH score of 2, with upper left arm ataxia on exam. The patient reported a history of IVDA both heroin and methamphetamines. He states he has been clean for 11 days and just got out of rehab. Last night around 7:45 p.m. he rolled over in bed got extremely dizzy. Now when he walks he feels extremely off balance. He denies any weakness he feels nauseated he has vomited a couple times. He denies any fever. However it is complicated because he is going through detox. He has been through detox few times in the past previously on Suboxone but not on any medications this time. Looking to go to a inpatient 4 month stay in [place]. If he remains still he is not dizzy. He also states the over the last 3 years he cannot walk or run without collapsing. He feels like his heart lb get short of breath he collapses. That is not new today. Resting and sitting in the emergency department he denies any shortness of breath. Patient History Medical History (Updated 03/27/20 @ 00:59 by DELTA Buenrostro-PORFIRIO) Heroin use disorder, mild, in early remission, abuse History of intravenous drug use in remission Methamphetamine abuse in remission Wound, surgical, infected Surgical History (Updated 03/27/20 @ 00:52 by DELTA Buenrostro-PORFIRIO) History of incision and drainage Family & Social History Family History (Updated 03/27/20 @ 00:54 by DELTA Buenrostro-PORFIRIO) Father Stroke Hypertension Hyperlipidemia Mother Congestive heart failure Diabetes mellitus Hyperlipidemia Hypertension Social History: household members family Mother Prior Living Arrangements House Safety & Behavioral: Feels Safe in Current Yes Environment Been Physically Hurt or No Threatened By a Person Suicidal Ideation Description None Tobacco & Substance use: Smoking Status Never smoker alcohol intake Heavy daily intake age [age]yrs Substance Use Type former substance user Meds Home Medications and Allergies Home Medications Medication Instructions Recorded Confirmed Type No Known Home Medications 03/26/20 03/26/20 History Allergies Allergy/AdvReac Type Severity Reaction Status Date / Time No Known Drug Allergies Allergy Verified 03/26/20 15:34 Review of Systems Review of Systems ROS: Yes All systems reviewed with the patient and are negative except as otherwise documented Constitutional Constitutional: Reports body ache(s), Reports chills, Reports difficulty sleeping, Reports excessive sweating, Reports fatigue, Reports frequent falls, Reports headache(s), Reports malaise, Reports night sweats and Reports weakness Eyes Eyes: Reports system reviewed and no additional complaints, except as documented ENT Ears, Nose, Mouth, and Throat: Yes system reviewed and no additional complaints, except as documented, Yes dizziness and Yes headache(s) Cardiovascular Cardiovascular: Reports syncope and Reports leg ulcers (has 2 healed injection sites to the left thigh x 2 months ) Respiratory Respiratory: Reports system reviewed and no additional complaints, except as documented Gastrointestinal Gastrointestinal: Reports system reviewed and no additional complaints, except as documented Genitourinary Genitourinary: Reports system reviewed and no additional complaints, except as documented Musculoskeletal Musculoskeletal: Reports system reviewed and no additional complaints, except as documented Integumentary/Breasts Skin/Breast: Reports wounds (Healed injection wounds to bilateral AC ) Neurologic Neurologic: Reports dizziness, Reports syncope, Reports frequent falls, Reports headache(s) and Reports weakness Psychiatric Psychiatric: Reports other (Patient is going through Heroin & meth mild withdrawl -11 days clean ) Endocrine Endocrine: Reports system reviewed and no additional complaints, except as documented, Reports excessive sweating and Reports fatigue Hematologic/Lymphatic Hematologic/Lymphatic: Reports system reviewed and no additional complaints, except as documented Allergic/Immunologic Allergic/Immunologic: Reports system reviewed and no additional complaints, except as documented Exam Vital Signs (past 8 hours): - 03/26/20 17:00 03/26/20 17:30 03/26/20 18:00 Temperature Pulse Rate 75 78 68 Respiratory Rate 17 19 15 Blood Pressure Pulse Oximetry 100 100 03/26/20 19:49 03/26/20 19:50 03/26/20 20:00 Temperature Pulse Rate 78 79 89 Respiratory Rate 15 Blood Pressure 123/91 H Pulse Oximetry 100 100 100 03/26/20 20:30 03/26/20 20:38 03/26/20 21:00 Temperature Pulse Rate 64 62 65 Respiratory Rate Blood Pressure 123/91 H 113/68 114/67 Pulse Oximetry 100 100 100 03/26/20 21:30 03/26/20 22:00 03/26/20 22:01 Temperature Pulse Rate 58 L 56 L 55 L Respiratory Rate Blood Pressure 131/90 119/77 Pulse Oximetry 100 100 100 03/26/20 22:45 03/26/20 23:40 Temperature 97.7 F 98.2 F Pulse Rate 58 L 61 Respiratory Rate 20 18 Blood Pressure 147/95 H 137/77 Pulse Oximetry 95 Oxygen Delivery Method Room Air Oxygen Flow Rate 0 Narrative Exam Narrative: General: This is a pleasant, well-developed, well-nourished, male in no distress at this time. HEENT normocephalic atraumatic, extraocular muscles intact, patient missing teeth, dental caries present, oropharynx is clear and mucous membranes are moist, neck is supple and symmetric without adenopathy trachea is midline, no thyroid enlargement, nontender, no masses palpated. Lungs: Auscultation of all lung field are clear without adventitious sounds wheezes rhonchi or rales. Cardio: S1-S2 with a regular rate and rhythm without murmur rubs or gallops no carotid bruit present. Abdomen: Soft nontender, negative for go megaly, or masses, bowel sounds are present in all 4 quadrants, no guarding or rebound, no CVA tenderness. Musculoskeletal: Muscle strength and tone equal within normal limits, no deformity, crepitus,or effusions noted, extremities are negative for cyanosis, clubbing or edema, full range of motion intact, radial and pedal pulses are normal. Skin: Warm dry and intact without rashes, ulcerations, or petechiae. Noted healed track teran present to bilateral AC, and left thigh 2 healed over injection sites, without erythema warmth or pain to palpation. Neuro: Patient is alert and orientated x3, appropriate affect, mental status, thought context and judgments, strength is 5/5 in all extremities, sensation to touch intact, CN no gross deficits noted. Objective Labs Result Diagrams: 03/26/20 17:00 03/26/20 17:00 Labs: Laboratory Results - last 24 hr 03/26/20 03/26/20 03/26/20 00:13 17:00 17:00 WBC 8.6 RBC 5.23 Hgb 15.9 Hct 45.5 MCV 87.1 MCH 30.5 MCHC 35.0 RDW 13.2 Plt Count 314 Neut % (Auto) 73.3 Lymph % (Auto) 18.5 L [place] % (Auto) 6.9 Eos % (Auto) 0.7 L Baso % (Auto) 0.6 Neut # (Auto) 6300 Lymph # (Auto) 1600 [place] # (Auto) 600 Eos # (Auto) 100 Baso # (Auto) 0 PT 12.7 INR 1.1 APTT 31 D-Dimer < 200 ABG pH 7.41 ABG pCO2 37.9 ABG pO2 103 H ABG HCO3 24 ABG Total CO2 25 ABG O2 Saturation 98 ABG Base Excess -1.0 FiO2 21 Sodium Potassium Chloride Carbon Dioxide BUN Creatinine Estimated GFR BUN/Creatinine Ratio Glucose Hemoglobin A1c Lactate Calcium Total Bilirubin AST ALT Alkaline Phosphatase Total Creatine Kinase CK-MB (CK-2) CK-MB (CK-2) Rel Index Troponin I Total Protein Albumin Globulin Albumin/Globulin Ratio TSH U Opiates 300ng/mL cut Ur Oxycodone Screen Urine Methadone Screen Ur Barbiturates Screen U Tricyclic Antidepress Ur Phencyclidine Scrn Ur Amphetamines Screen U Methamphetamines Scrn Ur MDMA Scrn (Ecstasy) U Benzodiazepines Scrn Urine Cocaine Screen U Marijuana (THC) Screen COVID-19 [facility] 03/26/20 03/26/20 03/26/20 17:00 17:00 17:00 WBC RBC Hgb Hct MCV MCH MCHC RDW Plt Count Neut % (Auto) Lymph % (Auto) [place] % (Auto) Eos % (Auto) Baso % (Auto) Neut # (Auto) Lymph # (Auto) [place] # (Auto) Eos # (Auto) Baso # (Auto) PT INR APTT D-Dimer ABG pH ABG pCO2 ABG pO2 ABG HCO3 ABG Total CO2 ABG O2 Saturation ABG Base Excess FiO2 Sodium 139 Potassium 3.9 Chloride 103 Carbon Dioxide 32 BUN 15 Creatinine 0.76 Estimated GFR > 60.0 BUN/Creatinine Ratio 19.7 Glucose 120 H Hemoglobin A1c 5.2 Lactate 1.9 Calcium 9.2 Total Bilirubin 0.9 AST 24 ALT 22 Alkaline Phosphatase 73 Total Creatine Kinase 45 L CK-MB (CK-2) TNP CK-MB (CK-2) Rel Index TNP Troponin I < 0.012 Total Protein 8.6 H Albumin 4.5 Globulin 4.1 Albumin/Globulin Ratio 1.1 TSH U Opiates 300ng/mL cut Ur Oxycodone Screen Urine Methadone Screen Ur Barbiturates Screen U Tricyclic Antidepress Ur Phencyclidine Scrn Ur Amphetamines Screen U Methamphetamines Scrn Ur MDMA Scrn (Ecstasy) U Benzodiazepines Scrn Urine Cocaine Screen U Marijuana (THC) Screen COVID-19 PCR 03/26/20 03/26/20 03/26/20 17:00 19:16 20:57 WBC RBC Hgb Hct MCV MCH MCHC RDW Plt Count Neut % (Auto) Lymph % (Auto) [place] % (Auto) Eos % (Auto) Baso % (Auto) Neut # (Auto) Lymph # (Auto) [place] # (Auto) Eos # (Auto) Baso # (Auto) PT INR APTT D-Dimer ABG pH ABG pCO2 ABG pO2 ABG HCO3 ABG Total CO2 ABG O2 Saturation ABG Base Excess FiO2 Sodium Potassium Chloride Carbon Dioxide BUN Creatinine Estimated GFR BUN/Creatinine Ratio Glucose Hemoglobin A1c Lactate Calcium Total Bilirubin AST ALT Alkaline Phosphatase Total Creatine Kinase CK-MB (CK-2) CK-MB (CK-2) Rel Index Troponin I Total Protein Albumin Globulin Albumin/Globulin Ratio TSH 1.01 U Opiates 300ng/mL cut Negative Ur Oxycodone Screen Negative Urine Methadone Screen Negative Ur Barbiturates Screen Negative U Tricyclic Antidepress Negative Ur Phencyclidine Scrn Negative Ur Amphetamines Screen Negative U Methamphetamines Scrn Negative Ur MDMA Scrn (Ecstasy) Negative U Benzodiazepines Scrn Negative Urine Cocaine Screen Negative U Marijuana (THC) Screen Positive H COVID-19 PCR Negative Assessment & Plan Assessment & Plan narrative: Patient is a 34-year-old male with a history of IV drug use heroin and methamphetamines times 12 years in remission times 11 days, who presented to the emergency room with ataxia of left upper extremity, and repeated falls from lack of balance and coordination, brain MRI demonstrated multiple small acute infarctions scattered in the superior and inferior cortex of the left cerebellum. Patient was admitted under stroke protocol echo with bubble ordered for tomorrow. 1. 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 Chest x-ray: Negative for acute cardiopulmonary pathology. EKG:Normal sinus rhythm rate 66 p.r. interval 180 QRS [address] changes or T-wave inversions. -INR 1.1, D-dimer, lactate , & troponin negative, total protein 8.6, total creatinine kinase 45. Negative UA -patient received 1000 cc normal saline in the ER, aldosterone 4 mg, Ativan 1 mg, ASA 324, acetaminophen 975 mg, meclizine 25 mg. -Patient is scheduled for echo with bubble tomorrow -telemedicine, fall precautions, continue to monitor for signs of developing infectious endocarditis, bedside swallow ordered-heart healthy diet once cleared, ASA 81 mg, atorvastatin 80 mg, neuro checks per protocol, NIH checks Q shift, education on alcohol tobacco and drug cessation, I&O Q shift, weights daily. -a.m. labs lipids, BMP, HIV, GC/chlamydia, hepatitis panel CBC, CMP, PT, TSH with reflex T4, Mag, D-dimer, BNP, blood cultures pending - (Neuro) consult with ER provider. -evaluations: PT, OT, ST. -needs referral for PCP, and Neurology 2. IV drug use of methamphetamine and heroin, in early remission times 11 days, chronic, not present on admission -patient had a negative drug screen with the exception of marijuana -patient to be monitored for withdrawal. -patient received detox treatment for 5 days starting March 17, 2020, has been clean 11 days, is scheduled to go to [facility] April of 2020 for inpatient detox and rehabilitation. -patient is stable at this time -patient education provided regarding drug and alcohol cessation. Code status: Full code Decision maker: Mother Mercedes QUIROZ PCR: Negative [id number]: None VTE prophylaxis: Patient started on clopidogrel 75 mg daily Scores GCS Eloy coma scale eye opening: Spontaneous Bisi coma scale verbal response: Orientated Bisi coma scale motor response: Obey commands Bisi coma scale total score: 15 NIHSS Level of Conciousness: Alert, keenly responsive Ask month/age: Answers both questions correctly. Open/close eyes, close hand: Performs both tasks correctly Best gaze horizontal: Normal Visual schwartz: No visual loss Facial palsy: Normal symetrical movement Left arm drift: No drift for full 10 sec Right arm drift: No drift for full 10 sec Left leg drift: No drift for full 5 sec Right leg drift: No drift for full 5 sec Limb ataxia: Absent Sensory on face/arms/legs: Mild to moderate sensory loss, can tell touch (Sensation to pinprick greater on the right of forehead over the left) Best language: No aphasia, normal Dysarthria: Normal Extinction or inattention: No abnormality Total NIH Stroke scale score: 1 CHADS-VASc Congestive heart failure: no Hypertension: no Age 75 years or older: no Diabetes mellitus: no Stroke, TIA, or TE: yes Vascular disease: no Age 65 to 74 years: no Sex category (female): Male CHADS-VASc Score: 2
--- NOTE | 2020-03-27 06:45 | PC.NURSE ---
Wash [employer] Tender Note-Patient is A/Ox4, NIH score of 1 for LUE ataxia. Past bedside RN swallow eval, now on heart healthy diet. SB/SR, 1st degree AVB, BBB on telemetry, VSS.
[2020-03-27 07:21] LABS: Add Manual Diff / Slide Review NO; Basophils Absolute Auto 0 /uL (0-100); Basophils Percent Auto 0.7 % (0-2); Eosinophils Absolute Auto 300 /uL (0-450); Eosinophils Percent Auto 4.1 % (2-4); Hematocrit 43.4 % (41-53); Hemoglobin 14.9 g/dL (13.5-17.5); Lymphocytes Absolute Auto 1800 /uL (1100-4500); Lymphocytes Percent Auto 26.9 % (25-40); Mean Corpuscular HGB Conc 34.5 % (30-36); Mean Corpuscular Volume 87.2 fL (80-100); Monocytes Absolute Auto 400 /uL (0-900); Monocytes Percent Auto 5.7 % (3-14); Neutrophils Absolute Auto 4100 /uL (1500-7000); Neutrophils Percent Auto 62.6 % (50-75); Platelet Count 288 X10^3/uL (150-400); Red Blood Cell Count 4.98 X10^6/uL (4.5-5.9); Red Cell Distribution Width 13.3 % (11.6-14.8); White Blood Cell Count 6.5 X10^3/uL (4.5-11.0)
[2020-03-27 07:24] LABS: PTT Partial Thromboplastin Tim 33 SECONDS (26.4-36.2)
[2020-03-27 07:25] LABS: Cholesterol 138 mg/dL (140-199); HDL Cholesterol 54 mg/dL (40-60); LDL Cholesterol Calculated 61 mg/dL (<100); Magnesium 2.2 mg/dL (1.6-2.3); Triglycerides 113 mg/dL (35-150)
[2020-03-27 07:26] LABS: Alanine Aminotransferase 18 IU/L (<50); Albumin Globulin Ratio 1.2 (1.0-2.8); Alkaline Phosphatase 73 U/L (38-126); Aspartate Aminotransferase 22 IU/L (17-59); BUN Creatinine Ratio 16.9 (6-22); Bilirubin Total 0.8 mg/dL (0.2-1.3); Blood Urea Nitrogen 11 mg/dL (9-20); Calcium 8.7 mg/dL (8.4-10.2); Carbon Dioxide 28 mmol/L (22-32); Chloride 106 mmol/L (98-107); Estimated Glomerular Filt Rate > 60.0 mL/min (>60); Globulin 3.4 g/dL (1.7-4.1); Glucose 102 mg/dL (70-100); HEMOLYSIS < 15 (0-50); Potassium 3.8 mmol/L (3.4-5.1); Sodium 138 mmol/L (137-145); Total Protein 7.4 g/dL (6.3-8.2)
[2020-03-27 07:32] LABS: D Dimer 208 ng/mL (<230)
[2020-03-27 07:34] LABS: NT-proBNP (BNP-Adult 18+) 121 pg/mL (<125)
[2020-03-27 08:11] LABS: TSH w/ Reflex to FT4 1.28 uIU/mL (0.47-4.68)
[2020-03-27] MEDS: CLOPIDOGREL 75 MG TABLET PO (08:59)
[2020-03-27] MEDS: OXYCODONE/ACETAMINOPHEN 5/325 TABLET 1 TAB PO ×3 (08:59→20:11)
[2020-03-27] MEDS: ASPIRIN EC 81 MG TABLET PO (08:59)
[2020-03-27] MEDS: SODIUM CHLORIDE 0.9% FLUSH 10 ML IV ×2 (09:02→20:11)
--- NOTE | 2020-03-27 11:01 | CM.IDA ---
Initial DCP Assessment Note Patient is a 34 yo male, original resident of [facility], planning to move down to [facility] w/ sister over the next month or so. Patient presented to ED w/increasing weakness and inability to stand, found to have a cerebellar stroke, acute, likely secondary to IV methamphetamine and heroin drug use x12 years (in early remission) No current PCP Payer is listed as [facility], although patient recently had MediCal initiated 03.21.20 according to sister Patient discussed in multidisciplinary rounds. Echo pending today, Dr Beltran explains patient may be a candidate for MAGUE procedure, in which case he would need to be transferred. Met w/patient and his sister Elza at bedside, introduced role. Patient and sister (30 yo) were born and raised in [place], [place]. Both have struggled w/opiate abuse, sister is now 10 yrs clean. Patient has been chronically homeless and a poly substance abuser for 12 years, IV heroin and meth use. Patient has had h/o usp time..multiple occasions, during which, patient explains, was the only time he had periods of sobriety. Patient has h/o one treatment stay (where?). No current counselor or PCP/Psychiatrist. Sister Elza (unemployed and mom of 3 y.o.) dedicating her time and efforts to assisting her brother to get clean, and remain clean. Patient had last used approx 11 days ago, had gone to [facility] in [place] 03.17.20 and was released SundayMar 22. Patient, sister and her 3 yo have been staying w/friends in [place] while patient continues to get right which patient expects will take a month...then presented to the ED w/ neuro symptoms. Elza is in close contact w/friends in [place], [place] that are assisting in process to secure 90 day treatment stay at an inpatient [facility] treatment, then assist after treatment w/ intensive outpatient support, clean and sober living and employment...all of which sound promising to give patient a chance at sober living. This TEAM LEAD suggests to patient and sister that further discussion re: treatment/resource options in [facility] be on hold until we know if patient is going to transfer today ? sister agrees. Patient plans to DC home with sister who has said I don't let him out of my sight (in order to keep patient from using. Patient confirms and says it may sound pathetic but it has reached that point Following closely as medical POC unfolds MARY Blackwood
--- NOTE | 2020-03-27 11:15 | PM.PN.1 ---
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 Patient continues to complain of headache. He has not been out of bed so not sure if ataxia has resolved. He denies shortness of breath or chest pain. Patient notes fever last night, but records reveal a Tmax of 99.6. Blood cultures and Echo still pending Exam Vital Signs (past 8 hours): - 03/27/20 04:42 03/27/20 06:44 03/27/20 08:00 Temperature 98.5 F 99.1 F Pulse Rate 57 L 61 Respiratory Rate 18 16 Blood Pressure 141/92 H 143/98 H Pulse Oximetry 100 100 100 03/27/20 09:31 Temperature Pulse Rate Respiratory Rate Blood Pressure Pulse Oximetry 95 Oxygen Delivery Method Room Air Oxygen Flow Rate 0 Narrative Exam Narrative: pleasant male in no acute distress Lungs: Clear to auscultation CV: RRR nlSl S2 2/6 EITAN ABd: soft/ non tender/ nondistended Ext: no edema Objective Labs Result Diagrams: 03/27/20 07:00 03/27/20 07:00 Labs: Laboratory Results - last 24 hr 03/26/20 03/26/20 03/26/20 00:13 17:00 17:00 WBC 8.6 RBC 5.23 Hgb 15.9 Hct 45.5 MCV 87.1 MCH 30.5 MCHC 35.0 RDW 13.2 Plt Count 314 Neut % (Auto) 73.3 Lymph % (Auto) 18.5 L [place] % (Auto) 6.9 Eos % (Auto) 0.7 L Baso % (Auto) 0.6 Neut # (Auto) 6300 Lymph # (Auto) 1600 [place] # (Auto) 600 Eos # (Auto) 100 Baso # (Auto) 0 PT 12.7 INR 1.1 APTT 31 D-Dimer < 200 ABG pH 7.41 ABG pCO2 37.9 ABG pO2 103 H ABG HCO3 24 ABG Total CO2 25 ABG O2 Saturation 98 ABG Base Excess -1.0 FiO2 21 Sodium Potassium Chloride Carbon Dioxide BUN Creatinine Estimated GFR BUN/Creatinine Ratio Glucose Hemoglobin A1c Lactate Calcium Magnesium Total Bilirubin AST ALT Alkaline Phosphatase Total Creatine Kinase CK-MB (CK-2) CK-MB (CK-2) Rel Index Troponin I NT-Pro-B Natriuret Pep Total Protein Albumin Globulin Albumin/Globulin Ratio Triglycerides Cholesterol LDL Cholesterol, Calc HDL Cholesterol TSH U Opiates 300ng/mL cut Ur Oxycodone Screen Urine Methadone Screen Ur Barbiturates Screen U Tricyclic Antidepress Ur Phencyclidine Scrn Ur Amphetamines Screen U Methamphetamines Scrn Ur MDMA Scrn (Ecstasy) U Benzodiazepines Scrn Urine Cocaine Screen U Marijuana (THC) Screen COVID-19 PCR 03/26/20 03/26/20 03/26/20 17:00 17:00 17:00 WBC RBC Hgb Hct MCV MCH MCHC RDW Plt Count Neut % (Auto) Lymph % (Auto) [place] % (Auto) Eos % (Auto) Baso % (Auto) Neut # (Auto) Lymph # (Auto) [place] # (Auto) Eos # (Auto) Baso # (Auto) PT INR APTT D-Dimer ABG pH ABG pCO2 ABG pO2 ABG HCO3 ABG Total CO2 ABG O2 Saturation ABG Base Excess FiO2 Sodium 139 Potassium 3.9 Chloride 103 Carbon Dioxide 32 BUN 15 Creatinine 0.76 Estimated GFR > 60.0 BUN/Creatinine Ratio 19.7 Glucose 120 H Hemoglobin A1c 5.2 Lactate 1.9 Calcium 9.2 Magnesium Total Bilirubin 0.9 AST 24 ALT 22 Alkaline Phosphatase 73 Total Creatine Kinase 45 L CK-MB (CK-2) TNP CK-MB (CK-2) Rel Index TNP Troponin I < 0.012 NT-Pro-B Natriuret Pep Total Protein 8.6 H Albumin 4.5 Globulin 4.1 Albumin/Globulin Ratio 1.1 Triglycerides Cholesterol LDL Cholesterol, Calc HDL Cholesterol TSH U Opiates 300ng/mL cut Ur Oxycodone Screen Urine Methadone Screen Ur Barbiturates Screen U Tricyclic Antidepress Ur Phencyclidine Scrn Ur Amphetamines Screen U Methamphetamines Scrn Ur MDMA Scrn (Ecstasy) U Benzodiazepines Scrn Urine Cocaine Screen U Marijuana (THC) Screen COVID-19 PCR 03/26/20 03/26/20 03/26/20 17:00 19:16 20:57 WBC RBC Hgb Hct MCV MCH MCHC RDW Plt Count Neut % (Auto) Lymph % (Auto) [place] % (Auto) Eos % (Auto) Baso % (Auto) Neut # (Auto) Lymph # (Auto) [place] # (Auto) Eos # (Auto) Baso # (Auto) PT INR APTT D-Dimer ABG pH ABG pCO2 ABG pO2 ABG HCO3 ABG Total CO2 ABG O2 Saturation ABG Base Excess FiO2 Sodium Potassium Chloride Carbon Dioxide BUN Creatinine Estimated GFR BUN/Creatinine Ratio Glucose Hemoglobin A1c Lactate Calcium Magnesium Total Bilirubin AST ALT Alkaline Phosphatase Total Creatine Kinase CK-MB (CK-2) CK-MB (CK-2) Rel Index Troponin I NT-Pro-B Natriuret Pep Total Protein Albumin Globulin Albumin/Globulin Ratio Triglycerides Cholesterol LDL Cholesterol, Calc HDL Cholesterol TSH 1.01 U Opiates 300ng/mL cut Negative Ur Oxycodone Screen Negative Urine Methadone Screen Negative Ur Barbiturates Screen Negative U Tricyclic Antidepress Negative Ur Phencyclidine Scrn Negative Ur Amphetamines Screen Negative U Methamphetamines Scrn Negative Ur MDMA Scrn (Ecstasy) Negative U Benzodiazepines Scrn Negative Urine Cocaine Screen Negative U Marijuana (THC) Screen Positive H COVID-19 PCR Negative 03/27/20 03/27/20 03/27/20 07:00 07:00 07:00 WBC 6.5 RBC 4.98 Hgb 14.9 Hct 43.4 MCV 87.2 MCH 30.0 MCHC 34.5 RDW 13.3 Plt Count 288 Neut % (Auto) 62.6 Lymph % (Auto) 26.9 [place] % (Auto) 5.7 Eos % (Auto) 4.1 H Baso % (Auto) 0.7 Neut # (Auto) 4100 Lymph # (Auto) 1800 [place] # (Auto) 400 Eos # (Auto) 300 Baso # (Auto) 0 PT INR APTT 33 D-Dimer ABG pH ABG pCO2 ABG pO2 ABG HCO3 ABG Total CO2 ABG O2 Saturation ABG Base Excess FiO2 Sodium 138 Potassium 3.8 Chloride 106 Carbon Dioxide 28 BUN 11 Creatinine 0.65 L Estimated GFR > 60.0 BUN/Creatinine Ratio 16.9 Glucose 102 H Hemoglobin A1c Lactate Calcium 8.7 Magnesium Total Bilirubin 0.8 AST 22 ALT 18 Alkaline Phosphatase 73 Total Creatine Kinase CK-MB (CK-2) CK-MB (CK-2) Rel Index Troponin I NT-Pro-B Natriuret Pep Total Protein 7.4 Albumin 4.0 Globulin 3.4 Albumin/Globulin Ratio 1.2 Triglycerides Cholesterol LDL Cholesterol, Calc HDL Cholesterol TSH U Opiates 300ng/mL cut Ur Oxycodone Screen Urine Methadone Screen Ur Barbiturates Screen U Tricyclic Antidepress Ur Phencyclidine Scrn Ur Amphetamines Screen U Methamphetamines Scrn Ur MDMA Scrn (Ecstasy) U Benzodiazepines Scrn Urine Cocaine Screen U Marijuana (THC) Screen COVID-19 PCR 03/27/20 03/27/20 03/27/20 07:00 07:00 07:00 WBC RBC Hgb Hct MCV MCH MCHC RDW Plt Count Neut % (Auto) Lymph % (Auto) [place] % (Auto) Eos % (Auto) Baso % (Auto) Neut # (Auto) Lymph # (Auto) [place] # (Auto) Eos # (Auto) Baso # (Auto) PT INR APTT D-Dimer 208 ABG pH ABG pCO2 ABG pO2 ABG HCO3 ABG Total CO2 ABG O2 Saturation ABG Base Excess FiO2 Sodium Potassium Chloride Carbon Dioxide BUN Creatinine Estimated GFR BUN/Creatinine Ratio Glucose Hemoglobin A1c Lactate Calcium Magnesium 2.2 Total Bilirubin AST ALT Alkaline Phosphatase Total Creatine Kinase CK-MB (CK-2) CK-MB (CK-2) Rel Index Troponin I NT-Pro-B Natriuret Pep 121 Total Protein Albumin Globulin Albumin/Globulin Ratio Triglycerides 113 Cholesterol 138 L LDL Cholesterol, Calc 61 HDL Cholesterol 54 TSH 1.28 U Opiates 300ng/mL cut Ur Oxycodone Screen Urine Methadone Screen Ur Barbiturates Screen U Tricyclic Antidepress Ur Phencyclidine Scrn Ur Amphetamines Screen U Methamphetamines Scrn Ur MDMA Scrn (Ecstasy) U Benzodiazepines Scrn Urine Cocaine Screen U Marijuana (THC) Screen COVID-19 PCR PFSH Medical History (Updated 03/27/20 @ 00:59 by MIRNA Buenrostro) Heroin use disorder, mild, in early remission, abuse History of intravenous drug use in remission Methamphetamine abuse in remission Wound, surgical, infected Surgical History (Updated 03/27/20 @ 00:52 by MIRNA Buenrostro) History of incision and drainage Family History (Updated 03/27/20 @ 00:54 by MIRNA Buenrostro) Father Stroke Hypertension Hyperlipidemia Mother Congestive heart failure Diabetes mellitus Hyperlipidemia Hypertension Social History household members: family Smoking Status: Never smoker alcohol intake: never Assessment & Plan Assessment & Plan narrative: 34 y/o male admitted with acute Cerebellar Infarcts -Confirmed on MRI -No carotid disease per CTA -On DAPT, DVT prophylaxis -Await Echo with bubble study -IF Echo negative, will need to transfer for MAGUE, as patient is at VERY High Risk for Cardioembolic disease -Ordered ESR,Procalcitonin, CRP -Blood cultures pending, no further fever -Chronic daily headache persists -PT/OT consults -Continue Statin History of Polysubstance abuse -no evidence of withdrawal at this time -await blood cultures/echo Hypertension -blood pressure 140/90 -continue to monitor, will start BP meds within 24 hours if still elevated
--- NOTE | 2020-03-27 11:39 | PT.IIE ---
Surgical History (Last Updated 03/27/20 @ 00:52 by Lisa Infante [facility]) History of incision and drainage Medical History (Last Updated 03/27/20 @ 00:59 by Lisa Infante [facility]) Heroin use disorder, mild, in early remission, abuse History of intravenous drug use in remission Methamphetamine abuse in remission Wound, surgical, infected Physical Therapy Inpatient Evaluation/Re-Eval M1 PT/OT-IP Prior Functional Status Start: 03/27/20 13:48 Freq: NEEDED Status: Active Protocol: Document 03/27/20 11:39 AB (Rec: 03/27/20 14:11 AB [id number]) Medical Review Prior Functional Status Medical History Reviewed Yes Communication able to make needs known Mobility and Gait pt stated that he is independent with all mobilities and ambulation without AD Social History Household Members family Living Arrangements House Number of Floors (Floors) One Floor Number of Stairs To Enter/Railing? 1 step to enter Home Environment High Toilet,Tub/Shower Home Equipment Shower Seat with Backrest,Hand Held Shower,Grab Bars In Shower Additional Social History Comment stated that he lives with his sister and that his sister can assist her at home in [place] . currently staying with friends here in [place] and will d/c to his friends house without steps. stated that his sister will be coming to [place] to assist him. pt stated that he is planning on going to [facility] within 30 days for rehabilitation needs. M2 PT-IP Current Condition Start: 03/27/20 13:48 Freq: NEEDED Status: Active Protocol: Document 03/27/20 11:39 AB (Rec: 03/27/20 14:11 AB [id number]) Physical Therapy Current Condition Current Condition Evaluation Date 03/27/20 Treatment Diagnosis acute cerebellar infarcts; difficulty in walking Onset Date 03/26/20 Precautions Other Precautions falls M3 PT-IP Subjective Start: 03/27/20 13:48 Freq: NEEDED Status: Active Protocol: Document 03/27/20 11:39 AB (Rec: 03/27/20 14:11 AB [id number]) Subjective Physical Therapy Visit Type Type Initial Evaluation Visit Start Time 11:39 Visit Stop Time 12:08 Total Visit Minutes 29 Number of JACQUARD LACE [employer]AVER Visits 0 Physical Therapy Visit Comments Patient Comments pt is agreeable to do PT Therapy Pain Assessment Pain When Pain Assessed At Rest Pain Present Pain Present Pain Reported Location headache Intensity 8 Scale Used Numeric (0 - 10) Description Sharp Pain Management Techniques Modification of Treatment, Timing of Activity with Medications M4 PT-IP Mobility and Gait Start: 03/27/20 13:48 Freq: NEEDED Status: Active Protocol: Document 03/27/20 11:39 AB (Rec: 03/27/20 14:11 AB [id number]) PT-Bed Mobility Assessment Supine to Sit Supine to Sit Standby Assistance PT-Transfer Assessment Sit to and From Stand Sit to and from Stand Contact Guard Assistance Equipment Transfer Assistive Device Gait Belt Orthotic/Prosthetic Devices or Brace: No Transfers Transfer Destination Toilet Transfer Technique ambulated using FWW Transfer Ability Level of Assist Contact Guard Assistance,1 Person Assistance,Use of Upper Extremities Comments Mobility Comments c/o of a headache more on the R eye area. BP: 144/85. completed supine to sit SBA. continues to c/o headache. BP 146/103. pt sat on EOB for a few minutes and BP afterwards : 144/90. completed sit to stand CGA and ambulated towards the toilet CGA. completed ambulated to the sink using FWW CGA and was able to maintain standing using FWW for support CGA while completing handwashing. ambulated to the chair SBA using FWW. tinetti balance assessment completed. assessed ambulation without AD and completed ~ 20 ft CGA. presents with slow veda and guarded ambulation. pt stated that he feels steadier with FWW. pt agreed to sit up on chair. positioned on chair call light and table placed within reach. Left pt with NAC. Gait Assessment Gait Gait Assistance Required: Contact Guard Assist Distance (Feet) 20 Able to Maintain Weight Bearing Status Yes During Gait Assistive Devices Assistive Device None,Gait Belt,Front Wheeled Walker Orthotic/Prosthetic Devices or Brace: No Gait Deviations General Gait Pattern Decreased Stride Length, Decreased Feet Clearance,Step- to Gait,Wide Based Gait Factors Limiting Gait Function Factors Limiting Gait Function Decreased Activity Tolerance, Decreased Strength,Pain,Poor Balance,Poor Safety Awareness Comments Gait Comments pls refer to mobility section for details PT-Balance Assessment Sitting Balance and Reactions Static Sitting Balance Ability Good Dynamic Sitting Balance Ability Fair Standing Balance and Reactions Static Standing Balance Ability Fair Dynamic Standing Balance Ability Fair Device Used using FWW Functional Assessments Functional Tests Tinetti Balance and Gait Assessment balance: gait: 01/18 total: : mod fall risk M5 PT-IP Objective Assessments Start: 03/27/20 13:48 Freq: NEEDED Status: Active Protocol: Document 03/27/20 11:39 AB (Rec: 03/27/20 14:11 AB [email or web address]) Orientation Orientation/Cognition Level of Alertness Alert Orientation Name,Place,Situation Language Function Ability No Deficits Noted Safety Awareness Decreased Safety Awareness Memory Description No Deficits Noted Gross Range of Motion Lower Extremity ROM Assessment Within Functional Limits Strength Lower Extremity Strength Assessment Within Functional Limits Coordination Assessment Gross Coordination Gross Coordination WNL Sensation Assessment Sensation Gross Sensation WNL Muscle Tone Muscle Tone WNL Yes M6 PT-IP Treatment Start: 03/27/20 13:48 Freq: NEEDED Status: Active Protocol: Document 03/27/20 11:39 AB (Rec: 03/27/20 14:11 AB [email or web address]) Physical Therapy Treatment Education Education Provided Precautions,Weight Bearing Status,Safety M7 PT-IP Assessment and Plan Start: 03/27/20 13:48 Freq: NEEDED Status: Active Protocol: Document 03/27/20 11:39 AB (Rec: 03/27/20 14:11 AB [id number]) PT Summary Assessment and Plan Potential Rehabilitation Potential Good Status of Condition at Evaluation Stable Summary Impairments Pain,ROM,Strength,Balance, Coordination,Sensation,Tone, Cognition,Bed Mobility, Transfers,Gait,Activity Tolerance Assessment Summary pt requiring CGA with mobility and has unsteady gait. Tinetti balance assessment conducted and pt is at moderate fall risk. d/c plan depending on progress but pt may benefit from acute rehab vs outpt PT. will continue to assess progress. Goals Bed Mobility Goal Independent Transfer Goal Independent,Front Wheeled Walker Gait Goal Independent,Front Wheel Walker Gait Distance 200 Other Goals improve ambulation without AD 250 ft up/down 1 step without AD Days to Meet Goals 5 Frequency of Treatment Frequency Of Treatment Once a Day Treatment Plan Physical Therapy Treatment Plan Bed Mobility Training,Transfer Training,Gait Training, Therapeutic Exercise,Balance Retraining,Discharge Planning, Hot or Cold Pack,Neuromuscular Re-ed,Coordination Retraining Other Recommendations and Next Treatment standing balance, ambulation Focus Recommendations To Nursing Amount of Assist Needed 1 Person Assist Discharge Recommendations PT Discharge Recommendations Acute Rehab,Outpatient PT Equipment Needed for Home Before FWW if not safe without AD Discharge Transportation Needs at Discharge Private Vehicle
[2020-03-27 12:40] LABS: Erythrocyte Sedimentation Rate 3 MM/HR (0-15)
[2020-03-27 12:42] LABS: C-Reactive Protein Quant < 0.5 mg/dL (<1.0)
[2020-03-27] MEDS: ENOXAPARIN 40 MG/0.4 ML SYRINGE SUBCUT (12:50)
[2020-03-27 12:51] LABS: Procalcitonin < 0.05 ng/mL (<0.5)
--- NOTE | 2020-03-27 13:23 | OT.IP.EVAL ---
Past Medical History (Last Updated 03/27/20 @ 00:59 [facility] Heroin use disorder, mild, in early remission, abuse History of intravenous drug use in remission Methamphetamine abuse in remission Wound, surgical, infected Surgical History (Last Updated 03/27/20 @ 00:52 by DELTA BuenrostroPORFIRIO) History of incision and drainage Occupational Therapy Inpatient Evaluation/Re-Eval M1 PT/OT-IP Prior Functional Status Start: 03/27/20 13:48 Freq: NEEDED Status: Active Protocol: Document 03/27/20 14:18 CGR (Rec: 03/27/20 14:30 CGR [id number]) Medical Review Prior Functional Status Medical History Reviewed Yes Communication able to make needs known Mobility and Gait pt stated that he is independent with all mobilities and ambulation without AD Activities of Daily Living and IADL's Pt states he is IND in all ADLs without AD. Social History Household Members family Living Arrangements House Number of Floors (Floors) One Floor Number of Stairs To Enter/Railing? 1 step to enter Home Environment High Toilet,Tub/Shower Home Equipment Shower Seat with Backrest,Hand Held Shower,Grab Bars In Shower Employment Status Unemployed Additional Social History Comment Stated that he has been living with his mother in the [facility]. The pt is currently staying with friends here in [place] and will d/ c to his friends house without steps. Pt stated that his sister will be coming to [place] to assist him. Pt stated that he is planning on going to [facility] within 30 days for rehabilitation needs. M2 OT-IP Current Condition Start: 03/27/20 14:18 Freq: Status: Active Protocol: Document 03/27/20 14:18 CGR (Rec: 03/27/20 14:30 CGR [id number]) Occupational Therapy Current Condition Current Condition Evaluation Date 03/27/20 Treatment Diagnosis CVA Diagnosis Onset Date 03/26/20 M3 OT- IP Subjective and Pain Start: 03/27/20 14:18 Freq: Status: Active Protocol: Document 03/27/20 14:18 CGR (Rec: 03/27/20 14:30 CGR [id number]) OT- Subjective Occupational Therapy Visit Type Type Initial Evaluation Visit Start Time 13:00 Visit Stop Time 13:23 Total Visit Minutes 23 OT Pain Assessment Pain When Pain Assessed At Rest Pain Present Pain Present Pain Reported Location headache Intensity 9 Scale Used Numeric (0 - 10) Description Sharp Management Techniques Apply Cold,Distraction, Modification of Treatment,Re- positioning M4 OT- IP ADL's Start: 03/27/20 14:18 Freq: Status: Active Protocol: Document 03/27/20 14:18 CGR (Rec: 03/27/20 14:30 CGR [id number]) OT [id number] General Evaluation Self-Feeding Ability Independent Comments OT Self-Feeding Comments For lunch, noted during earlier attempt to see pt for eval. OT ADL-Grooming General Evaluation Grooming Ability Independent Comments OT Grooming Comments Standing at sink OT ADL-Oral Care General Eval Oral Care Ability Independent Comments Oral Care Comments Standing at sink OT ADL-Dressing General Eval Lower Body Dressing Ability Independent Areas Needing Assistance Socks Comments OT Dressing Comments seated in chair. OT ADL-Toileting General Evaluation Toileting Ability Independent OT ADL-Bathing Comments OT Bathing Comments Not performed M5 OT- IP IADL's Start: 03/27/20 14:18 Freq: Status: Active Protocol: Document 03/27/20 14:18 CGR (Rec: 03/27/20 14:30 CGR [id number]) OT-Instrumental Activities of Daily Living Deficits IADL Deficits Identified No Deficits Home Safety Awareness Awareness of Need for Assistance at Home Good Awareness Ability to Problem Solve Emergency Able to Problem Solve Situations M6 OT- IP Functional Cognition Start: 03/27/20 14:18 Freq: Status: Active Protocol: Document 03/27/20 14:18 CGR (Rec: 03/27/20 14:30 CGR [id number]) Cognitive Factors Limiting Selfcare Function Cognitive Ability Level of Alertness Alert Patient Orientation Name,Age,Birthday,Month,Date, Year,Day of Week,Place, Situation Attention Span Ability Capable of Focused Attention, Capable of Sustained Attention Ability to Follow Commands Able to Follow Multi-Step Commands Memory Description No Deficits Noted Safety Awareness No Deficits Noted Problem Solving Ability No deficits Noted OT- Vision and Hearing OT- Hearing Assessment OT- Hearing Assessment WFL OT- Vision Assessment Visual Acuity WFL Visual Attentiveness WFL Occular Pursuits WFL Visual Convergence WFL Visual Sharp WFL Visual Spacial Neglect Not Applicable M7 OT- IP Mobility and Balance Start: 03/27/20 14:18 Freq: Status: Active Protocol: Document 03/27/20 14:18 CGR (Rec: 03/27/20 14:30 CGR [id number]) OT- Bed Mobility Assessment Rolling Level of Assistance Independent Supine to Sit Supine to Sit Assist Independent Sit to Supine Sit to Supine Assist Independent Scooting Scooting to Edge of Bed Independent OT-Transfer Assessment Sit to and From Stand Sit to and from Stand Independent Transfers Transfer Ability Independent Technique Transfer Destination Bed,Chair,Toilet Transfer Technique Stand Step Pivot Devices Transfer Assistive Devices Gait Belt OT- Gait Assessment Gait Gait Assistance Required: Independent Assistive Devices Assistive Device Gait Belt OT- Balance Assessment Sitting Balance and Reactions Static Sitting Balance Ability Normal Dynamic Sitting Balance Ability Normal M8 OT- IP Objective Assessments Start: 03/27/20 14:18 Freq: Status: Active Protocol: Document 03/27/20 14:18 CGR (Rec: 03/27/20 14:30 CGR [id number]) OT Gross Range of Motion Upper Extremity Range of Motion Assessment Within Functional Limits OT Strength Upper Extremity Strength Assessment Within Functional Limits OT- Coordination Assessment Upper Extremity Finger to Nose Test Within Functional Limits Finger Tapping Test Within Functional Limits Comments Coordination Comments Pt states that he must consentrate more on the L hand /arm to get it to do what he wants but that it feels better than yesterday. OT-Muscle Tone Assessment Muscle Tone WNL Yes OT Sensation Assessment Edema Edema Absent M9 OT- IP Assessment and Plan Start: 03/27/20 14:18 Freq: Status: Active Protocol: Document 03/27/20 14:18 CGR (Rec: 03/27/20 14:30 CGR [id number]) OT Summary Assessment and Plan Potential Rehabilitation Potential Excellent Analytic Complexity at Evaluation Low Summary Progress Towards Goals Safe For Discharge,Goals Met Assessment Summary Pt presents as a low complexity evaluation s/p admit for CVA with balance and L side involvement. Pt presents as IND for mobility and states that he has to focus to ge this L arm and hand to do as he wishes but that it is better than yesterday. Educated pt on L sided exercises. No further OT needs. Frequency of Treatment Frequency Of Treatment Discharge Discharge Recommendations Transportation Needs at Discharge Private Vehicle
--- NOTE | 2020-03-27 13:49 | PC.NURSE ---
PT WITH ECHO AND MRI COMPLETED- HE IS ALERT/ORIENTED AND C/O HEADACHE - ONLY SLIGHLTY IMPROVED WITH PO RX, LUNGS CLEAR AND HAS GOOD APPETITE-
--- NOTE | 2020-03-27 16:14 | PC.NURSE ---
Addendum entered by Lisset Allen R.N. 03/27/20 22:52: Resting quietly in bed with eyes closed. Rouses to movement in room. No signs of distress or discomfort observed in this patient. Addendum entered by Lisset Allen R.N. 03/27/20 21:02: Declines bowel meds and states had bowel movement today. Addendum entered by Lisset Allen R.N. 03/27/20 20:56: Hospitalist Naresh in to see patient and made aware of pt's right forehead pain. Warm blanket to head as pt declines ice. BL calf scd's in place. Pt denies symptoms of withdrawal. Addendum entered by Lisset Allen R.N. 03/27/20 20:08: Pt now off of phone and ambulating in hallway with OVERLOCK SEWING MACHINE OPERATOR standby. Pt demonstrates steady gait. Admits to headache above right eyebrow. Requests meds for same. Addendum entered by Lisset Allen R.N. 03/27/20 18:46: Awake, alert, conversant on telephone in bed in room. Original Note: OVERLOCK SEWING MACHINE OPERATOR emerges from pt's room and reports pt has c/o headache all day and inquires when MD will see. This telegraphic typewriter operator enters pts room. Room is darkened and pt is lying flat in bed on left side. Discussed with pt c/o headache pain and pt reports is 910. Declines ice pack. Administered Percocet as ordered and pt reports this has provided relief previously. Pt is able to move all extremities independently and sits up in bed for assessment. Hearty appetite and has frequent requests of staff for sandwiches. These are provided to pt. Pt demonstrates no neurological deficit and denies observing any in self. States left arm/hand back to full strength. Denies any deficit in BL lower extremities. BL hand market development analyst are equally intact and strong and no drift to any/all extremities. Pt reports improvement over last evening's admission. Denies nausea. Voiding per urinal. Instructed pt not to attempt out of bed without calling for staff assistance and pt verbalizes understanding and agreement. Pt inquires re test Sunday for MAGUE and what this entails. This telegraphic typewriter operator printed teaching material from [employer] and provided to pt. Reinforced to pt Dr. Beltran has dictated progress note on pt today so was seen 03/27. Allowed to rest in darkened room to treat/manage headache pain.
[2020-03-27 19:39] LABS: Urine N gonorrhoeae NOT DETECTED
[2020-03-27 19:43] LABS: Urine Chlamydia NOT DETECTED
[2020-03-27] MEDS: ATORVASTATIN 20 MG TABLET 80 MG PO (20:10)
[2020-03-28] VITALS (8 sets, daily range): BP systolic 138–155; BP diastolic 82–106; PULSE 61–80; RESP 14–18; TEMP 36.7–37.5; O2SAT 98–99
[2020-03-28] MEDS: OXYCODONE/ACETAMINOPHEN 5/325 TABLET 1 TAB PO ×2 (01:16→06:45)
[2020-03-28 07:15] LABS: Add Manual Diff / Slide Review NO; Basophils Absolute Auto 100 /uL (0-100); Basophils Percent Auto 0.8 % (0-2); Eosinophils Absolute Auto 300 /uL (0-450); Eosinophils Percent Auto 5.1 % (2-4); Hematocrit 41.5 % (41-53); Hemoglobin 14.2 g/dL (13.5-17.5); Lymphocytes Absolute Auto 1900 /uL (1100-4500); Lymphocytes Percent Auto 28.7 % (25-40); Mean Corpuscular HGB Conc 34.3 % (30-36); Mean Corpuscular Hemoglobin 29.9 PG (26-34); Mean Corpuscular Volume 87.3 fL (80-100); Monocytes Absolute Auto 400 /uL (0-900); Monocytes Percent Auto 6.6 % (3-14); Neutrophils Absolute Auto 3800 /uL (1500-7000); Neutrophils Percent Auto 58.8 % (50-75); Platelet Count 259 X10^3/uL (150-400); Red Blood Cell Count 4.76 X10^6/uL (4.5-5.9); Red Cell Distribution Width 13.4 % (11.6-14.8); White Blood Cell Count 6.5 X10^3/uL (4.5-11.0)
[2020-03-28 07:50] LABS: Alanine Aminotransferase 17 IU/L (<50); Albumin 3.8 g/dL (3.5-5.0); Albumin Globulin Ratio 1.1 (1.0-2.8); Alkaline Phosphatase 79 U/L (38-126); Aspartate Aminotransferase 19 IU/L (17-59); BUN Creatinine Ratio 18.2 (6-22); Bilirubin Total 0.7 mg/dL (0.2-1.3); Blood Urea Nitrogen 14 mg/dL (9-20); Calcium 8.8 mg/dL (8.4-10.2); Carbon Dioxide 28 mmol/L (22-32); Chloride 105 mmol/L (98-107); Estimated Glomerular Filt Rate > 60.0 mL/min (>60); Globulin 3.4 g/dL (1.7-4.1); Glucose 99 mg/dL (70-100); HEMOLYSIS < 15 (0-50); Potassium 3.9 mmol/L (3.4-5.1); Sodium 138 mmol/L (137-145); Total Protein 7.2 g/dL (6.3-8.2)
[2020-03-28] MEDS: ENOXAPARIN 40 MG/0.4 ML SYRINGE SUBCUT (08:47)
[2020-03-28] MEDS: CLOPIDOGREL 75 MG TABLET PO (08:47)
[2020-03-28] MEDS: SODIUM CHLORIDE 0.9% FLUSH 10 ML IV ×2 (08:47→21:41)
[2020-03-28] MEDS: ASPIRIN EC 81 MG TABLET PO (08:47)
--- NOTE | 2020-03-28 11:09 | PT.IPTN ---
Current Diagnoses Other cerebral infarction (03/26/20) Physical Therapy Treatment Note M2 PT-IP Current Condition Start: 03/27/20 13:48 Freq: NEEDED Status: Active Protocol: Document 03/27/20 11:39 AB (Rec: 03/27/20 14:11 AB [id number]) Physical Therapy Current Condition Current Condition Evaluation Date 03/27/20 Treatment Diagnosis acute cerebellar infarcts; difficulty in walking Onset Date 03/26/20 Precautions Other Precautions falls M3 PT-IP Subjective Start: 03/27/20 13:48 Freq: NEEDED Status: Active Protocol: Document 03/28/20 10:51 AW (Rec: 03/28/20 11:09 AW [id number]) Subjective Physical Therapy Visit Type Type Treatment Note Visit Start Time 09:59 Visit Stop Time 10:14 Total Visit Minutes 15 Number of MILITARY SCIENCE TEACHER Visits 0 Physical Therapy Visit Comments Patient Comments pt is agreeable to do PT Therapy Pain Assessment Pain When Pain Assessed At Rest Pain Present Pain Present Pain Reported Location headache Intensity 7 Scale Used Numeric (0 - 10) Pain Management Techniques Modification of Treatment, Timing of Activity with Medications M4 PT-IP Mobility and Gait Start: 03/27/20 13:48 Freq: NEEDED Status: Active Protocol: Document 03/28/20 10:51 AW (Rec: 03/28/20 11:09 AW [id number]) PT-Bed Mobility Assessment Sit to Supine Sit to Supine Independent PT-Transfer Assessment Sit to and From Stand Sit to and from Stand Standby Assistance Equipment Transfer Assistive Device Gait Belt Orthotic/Prosthetic Devices or Brace: No Transfers Transfer Destination Bed,Toilet Transfer Technique ambulated without AD Transfer Ability Level of Assist Standby Assistance,1 Person Assistance,Use of Upper Extremities Comments Mobility Comments Pt continues to endorse 7/10 headache pain in R eye/ supraorbital region. Pt was sitting EOB finishing breakfast as PT arrived. He completed sit to stand SBA and ambulated to the toilet without AD SBA. Pt stood to void with good balance and walked back to sit EOB before agreeing to ambulate in the halls. Pt ambulated 400 feet without AD in the halls SBA. He completed Functional Gait Assessment with score of 26/30 . On return to the room, pt sat EOB and completed sit to supine SBA. Pt was positioned with call light in reach. Gait Assessment Gait Gait Assistance Required: Standby Assistance Distance (Feet) 400 Assistive Devices Assistive Device None,Gait Belt Orthotic/Prosthetic Devices or Brace: No Gait Deviations General Gait Pattern Decreased Stride Length, Decreased Feet Clearance Factors Limiting Gait Function Factors Limiting Gait Function Decreased Strength,Poor Balance,Poor Safety Awareness Comments Gait Comments Pt completed FGA with score of 26/30. Single points deducted for gait with horizontal head turns, gait with vertical head turns, gait and pivot turn, and gait with eyes closed. Stair Climbing Assessment Evaluation Level of Assist On Stairs Standby Assistance Devices Stair Climbing Assistive Devices None Technique/Endurance Stair Climbing Direction Ascend and Descend Stair Climbing Technique Step Over Step Number of Steps Climbed 3 Stair Climbing Set # Repetitions (reps) 2 PT-Balance Assessment Sitting Balance and Reactions Static Sitting Balance Ability Normal Dynamic Sitting Balance Ability Good Standing Balance and Reactions Static Standing Balance Ability Good Dynamic Standing Balance Ability Fair Device Used no AD Functional Assessments Functional Tests Functional Gait Assessment 26/30 M5 PT-IP Objective Assessments Start: 03/27/20 13:48 Freq: NEEDED Status: Active Protocol: Document 03/27/20 11:39 AB (Rec: 03/27/20 14:11 AB [id number]) Orientation Orientation/Cognition Level of Alertness Alert Orientation Name,Place,Situation Language Function Ability No Deficits Noted Safety Awareness Decreased Safety Awareness Memory Description No Deficits Noted Gross Range of Motion Lower Extremity ROM Assessment Within Functional Limits Strength Lower Extremity Strength Assessment Within Functional Limits Coordination Assessment Gross Coordination Gross Coordination WNL Sensation Assessment Sensation Gross Sensation WNL Muscle Tone Muscle Tone WNL Yes M6 PT-IP Treatment Start: 03/27/20 13:48 Freq: NEEDED Status: Active Protocol: Document 03/28/20 10:51 AW (Rec: 03/28/20 11:09 AW [id number]) Physical Therapy Treatment Education Education Provided Safety Other Treatments Other Treatment Performed Pt participated in static and dynamic balance exercises, including romberg stance with EO and EC, and NBOS with head turns/nods. M7 PT-IP Assessment and Plan Start: 03/27/20 13:48 Freq: NEEDED Status: Active Protocol: Document 03/28/20 10:51 AW (Rec: 03/28/20 11:09 AW [id number]) PT Summary Assessment and Plan Potential Rehabilitation Potential Good Status of Condition at Evaluation Stable Summary Impairments Pain,Strength,Balance, Coordination,Gait Progress Towards Goals Progressing Toward Goals Assessment Summary Pt is more steady this date and states he feels ~90% back to normal. Pt completed Functional Gait Assessment with score of 26/30. No norms are published for this age group, but according to Meliton 2007, norms for 40-49 yo's averaged 28.9. Pt is scoring lower than population 10 years older and is therefore in a higher fall risk category. PT recommends outpatient rehab to address dynamic balance and coordination deficits. Goals Bed Mobility Goal Independent Transfer Goal Independent,Front Wheeled Walker Gait Goal Independent,Front Wheel Walker Gait Distance 200 Other Goals improve ambulation without AD 250 ft up/down 1 step without AD Days to Meet Goals 4 Frequency of Treatment Frequency Of Treatment Once a Day Treatment Plan Physical Therapy Treatment Plan Bed Mobility Training,Transfer Training,Gait Training, Therapeutic Exercise,Balance Retraining,Discharge Planning, Hot or Cold Pack,Neuromuscular Re-ed,Coordination Retraining Other Recommendations and Next Treatment standing balance, ambulation Focus Recommendations To Nursing Amount of Assist Needed Standby Assistance Discharge Recommendations PT Discharge Recommendations Outpatient PT Equipment Needed for Home Before FWW if not safe without AD Discharge Transportation Needs at Discharge Private Vehicle
--- NOTE | 2020-03-28 11:19 | P.PN_ITS ---
Subjective Subjective Date Patient Seen: 03/28/20 Interval history: The patient is a 34-year-old male who presented to the hospital with abrupt onset of ataxia and dizziness. The patient underwent CT angio which was negative, MRI of the brain showed acute small multi infarcts involving the cerebellum. The patient has a history of IV substance abuse. He recently completed treatment about 11 days ago. Patient initially had low-grade fever on admission but none since. Blood cultures thus far are negative. He reports no further ataxia with ambulation. He continues to have mild headache. Exam Vital Signs (past 8 hours): - 03/28/20 05:00 03/28/20 08:00 Temperature 98.4 F 98.0 F Pulse Rate 62 61 Respiratory Rate 18 14 Blood Pressure 149/86 H 138/87 Pulse Oximetry 99 98 Oxygen Delivery Method Room Air Oxygen Flow Rate 0 Narrative Exam Narrative: Pleasant gentleman resting comfortably in no obvious distress Lungs: Clear to auscultation Cardiac exam: Regular rate and rhythm normal S1-S2 with a 2/6 systolic ejection murmur Abdomen: Soft and nontender Extremities: No edema Objective Labs Result Diagrams: 03/28/20 06:25 03/28/20 06:25 Labs: Laboratory Results - last 24 hr 03/27/20 03/27/20 03/27/20 06:20 07:00 07:00 WBC RBC Hgb Hct MCV MCH MCHC RDW Plt Count Neut % (Auto) Lymph % (Auto) Stafford % (Auto) Eos % (Auto) Baso % (Auto) Neut # (Auto) Lymph # (Auto) Stafford # (Auto) Eos # (Auto) Baso # (Auto) ESR 3 Sodium Potassium Chloride Carbon Dioxide BUN Creatinine Estimated GFR BUN/Creatinine Ratio Glucose Calcium Total Bilirubin AST ALT Alkaline Phosphatase C-Reactive Protein Total Protein Albumin Globulin Albumin/Globulin Ratio Procalcitonin < 0.05 Ur Chlamydia DNA (PCR) Not detected N gonorrhoeae DNA (PCR) Not detected 03/27/20 03/28/20 03/28/20 07:00 06:25 06:25 WBC 6.5 RBC 4.76 Hgb 14.2 Hct 41.5 MCV 87.3 MCH 29.9 MCHC 34.3 RDW 13.4 Plt Count 259 Neut % (Auto) 58.8 Lymph % (Auto) 28.7 Stafford % (Auto) 6.6 Eos % (Auto) 5.1 H Baso % (Auto) 0.8 Neut # (Auto) 3800 Lymph # (Auto) 1900 Stafford # (Auto) 400 Eos # (Auto) 300 Baso # (Auto) 100 ESR Sodium 138 Potassium 3.9 Chloride 105 Carbon Dioxide 28 BUN 14 Creatinine 0.77 Estimated GFR > 60.0 BUN/Creatinine Ratio 18.2 Glucose 99 Calcium 8.8 Total Bilirubin 0.7 AST 19 ALT 17 Alkaline Phosphatase 79 C-Reactive Protein < 0.5 Total Protein 7.2 Albumin 3.8 Globulin 3.4 Albumin/Globulin Ratio 1.1 Procalcitonin Ur Chlamydia DNA (PCR) N gonorrhoeae DNA (PCR) [facility] Medical History (Updated 03/27/20 @ 00:59 by DELTA Buenrostro-PORFIRIO) Heroin use disorder, mild, in early remission, abuse 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 34-year-old male admitted to the hospital with an acute cerebellar infarct -head CT, CT angio, MRI of the brain all confirmed inferior and superior your left cerebellar infarct which are acute -no evidence of carotid lesions noted -fasting lipid profile level reveals an LDL of 61 -patient started on dual anti-platelet therapy -patient appears to be hypertensive -cardiac echo with bubble study negative for intracardiac shunt -given high risk due to IVDA, will arrange for transesophageal echo tomorrow as an outpatient at [facility] 2. Hypertension -will start low-dose JUVENCIO-inhibitor 3. History of polysubstance abuse -no evidence of withdrawal -patient planning to go to [place] for inpatient rehab after discharge 4. DVT prophylaxis -continue Lovenox Disposition anticipate discharge home after MAGUE
--- NOTE | 2020-03-28 15:50 | PC.NURSE ---
Addendum entered by Lisset Allen R.N. 03/28/20 22:00: Awakens easily for hs meds. Reports headache pain resolved. States scd's are distraction to sleep. Encouraged ankle waving and calf pumping. Pt moves all extremities independently. Blood pressure on left arm elevated and rechecked on right arm for reading that aligns with history while in hospital. Provided with snacks as per request. Pt showered this evening shift and was independent in this activity. Addendum entered by Lisset Allen R.N. 03/28/20 18:05: Pt requests ambulation around wing. Mask placed on pt and ambulates with standby assistance around hallways. C/o headache 06/16 once returned to room and given tylenol per request. IV secured with covering and pt into shower per request. Tele suspended and ICU informed. Original Note: Pt lying quietly in bed watching television. Denies headache pain. Follows commands appropriately. Admits to no focal deficits and assesses neurologically intact. States up with P.T. with steady gait without complaints. Desires shower at some point this evening shift. Pt reports awaiting transfer for further care tomorrow to include MAGUE. Hearty appetite with sandwiches @ bedside. States bowels are moving without difficulty.
[2020-03-28] MEDS: ACETAMINOPHEN 325 MG TABLET 650 MG PO (17:51)
[2020-03-28] MEDS: ATORVASTATIN 20 MG TABLET 80 MG PO (21:41)
[2020-03-29] VITALS (10 sets, daily range): BP systolic 124–156; BP diastolic 83–95; PULSE 67–97; RESP 15–18; TEMP 36.6–36.9; O2SAT 97–99
--- NOTE | 2020-03-29 00:58 | PC.NURSE ---
RUST = 0
[2020-03-29] MEDS: CLOPIDOGREL 75 MG TABLET PO (09:28)
[2020-03-29] MEDS: ASPIRIN EC 81 MG TABLET PO (09:28)
[2020-03-29] MEDS: ENOXAPARIN 40 MG/0.4 ML SYRINGE SUBCUT (09:28)
[2020-03-29] MEDS: SODIUM CHLORIDE 0.9% FLUSH 10 ML IV ×2 (09:29→21:06)
--- NOTE | 2020-03-29 09:55 | SLP.IPNOTE ---
Order received for ST. Discussed pt's current condition with nursing who reported that pt is eating, speaking and is oriented back to baseline. Confirmed with Dr Beltran that pt does not need to be seen by ST. Will cancel the order
--- NOTE | 2020-03-29 11:32 | PT.IPTN ---
Current Diagnoses Other cerebral infarction (03/26/20) Physical Therapy Treatment Note M2 PT-IP Current Condition Start: 03/27/20 13:48 Freq: NEEDED Status: Active Protocol: Document 03/27/20 11:39 AB (Rec: 03/27/20 14:11 AB [id number]) Physical Therapy Current Condition Current Condition Evaluation Date 03/27/20 Treatment Diagnosis acute cerebellar infarcts; difficulty in walking Onset Date 03/26/20 Precautions Other Precautions falls M3 PT-IP Subjective Start: 03/27/20 13:48 Freq: NEEDED Status: Active Protocol: Document 03/29/20 11:21 CLB (Rec: 03/29/20 12:42 CLB [id number]) Subjective Physical Therapy Visit Type Type Treatment Note Visit Start Time 11:21 Visit Stop Time 11:32 Total Visit Minutes 11 Number of SECONDARY SET UP MAN Visits 1 Physical Therapy Visit Comments Patient Comments pt is agreeable to do PT, pt states he feels much better today and does not have a headache. Pt also stated he feels his LLE feels normal but he has to be intentional with LUE when using it. Therapy Pain Assessment Pain When Pain Assessed At Rest Pain Present Pain Present Denied Pain M4 PT-IP Mobility and Gait Start: 03/27/20 13:48 Freq: NEEDED Status: Active Protocol: Document 03/29/20 11:21 CLB (Rec: 03/29/20 12:42 CLB [id number]) PT-Bed Mobility Assessment Sit to Supine Sit to Supine Independent PT-Transfer Assessment Sit to and From Stand Sit to and from Stand Independent Equipment Transfer Assistive Device Gait Belt Orthotic/Prosthetic Devices or Brace: No Transfers Transfer Destination Bed Transfer Technique ambulated without AD Transfer Ability Level of Assist Independent Comments Mobility Comments Pt w/o complaint of headache today. Pt able to perform bed mobility and sit<>stand IND. Pt required assist donning GB then ambulated in freeman ~600ft w/o AD SBA. Pt also climbed three steps x2 w/o rail. Gait Assessment Gait Gait Assistance Required: Standby Assistance Distance (Feet) 600 Assistive Devices Assistive Device None,Gait Belt Orthotic/Prosthetic Devices or Brace: No Gait Deviations General Gait Pattern Within Normal Limits Factors Limiting Gait Function Factors Limiting Gait Function Decreased Strength Comments Gait Comments see mobility section Stair Climbing Assessment Evaluation Level of Assist On Stairs Standby Assistance Devices Stair Climbing Assistive Devices None Technique/Endurance Stair Climbing Direction Ascend and Descend Stair Climbing Technique Step Over Step Number of Steps Climbed 3 Stair Climbing Set # Repetitions (reps) 2 M5 PT-IP Objective Assessments Start: 03/27/20 13:48 Freq: NEEDED Status: Active Protocol: Document 03/27/20 11:39 AB (Rec: 03/27/20 14:11 AB [id number]) Orientation Orientation/Cognition Level of Alertness Alert Orientation Name,Place,Situation Language Function Ability No Deficits Noted Safety Awareness Decreased Safety Awareness Memory Description No Deficits Noted Gross Range of Motion Lower Extremity ROM Assessment Within Functional Limits Strength Lower Extremity Strength Assessment Within Functional Limits Coordination Assessment Gross Coordination Gross Coordination WNL Sensation Assessment Sensation Gross Sensation WNL Muscle Tone Muscle Tone WNL Yes M6 PT-IP Treatment Start: 03/27/20 13:48 Freq: NEEDED Status: Active Protocol: Document 03/28/20 10:51 AW (Rec: 03/28/20 11:09 AW [id number]) Physical Therapy Treatment Education Education Provided Safety Other Treatments Other Treatment Performed Pt participated in static and dynamic balance exercises, including romberg stance with EO and EC, and NBOS with head turns/nods. M7 PT-IP Assessment and Plan Start: 03/27/20 13:48 Freq: NEEDED Status: Active Protocol: Document 03/29/20 11:21 CLB (Rec: 03/29/20 12:42 CLB [id number]) PT Summary Assessment and Plan Summary Impairments Strength,Coordination Progress Towards Goals Goals Met Assessment Summary Pt able to ambulate w/o AD with steady gait and improved balance.Pt able to climb stairs w/o rail in step to step pattern safely. Pt states he feels his LLE is strong but that he has to be intentional with LUE when reaching for items. Discussed pt progress with PT Lara pt progress pt will be discharge from PT at this time as he has reach his goals. Goals Bed Mobility Goal Independent Transfer Goal Independent,Front Wheeled Walker Gait Goal Independent,Front Wheel Walker Gait Distance 200 Other Goals improve ambulation without AD 250 ft up/down 1 step without AD Days to Meet Goals 4 Frequency of Treatment Frequency Of Treatment Discharge Treatment Plan Physical Therapy Treatment Plan Bed Mobility Training,Transfer Training,Gait Training, Therapeutic Exercise,Balance Retraining,Discharge Planning, Hot or Cold Pack,Neuromuscular Re-ed,Coordination Retraining Recommendations To Nursing Amount of Assist Needed Independent Discharge Recommendations PT Discharge Recommendations Outpatient PT Transportation Needs at Discharge Private Vehicle
--- NOTE | 2020-03-29 12:16 | PC.NURSE ---
Day shift: Pt resting in bed w/ no c/o pain or discomfort. Pt made aware that MAGUE procedure at [facility] was cancelled for today but is planned for tomorrow and transport pick-up is at noon. Pt voiding well. Denies any chest pain or nausea. VS WNL. NIH 0 this AM. Pt took his AM meds. Uses call light proper. Has been calm and cooperative w/ care. Call light in reach. Continue w/ plan of care. Printed education on stroke and gave to Pt to read.
--- NOTE | 2020-03-29 14:20 | PC.NURSE ---
Day shift: Pt up OOB to use BR and per SLOT TAG INSERTER Pt became tachy in the 150's. Dr Beltran is aware. Pt back in bed and HR in the 80's. He has been asymptomatic. Good appetite for lunch. Ate a whole sandwich and 2 bowls of chili. Denies any pain or nausea. Will leave Pt on tele for now per Dr Beltran r/t his run of tachycardia. Makes needs known proper. Call light in reach. Steady on his feet.
--- NOTE | 2020-03-29 14:51 | P.PN_ITS ---
Subjective Subjective Date Patient Seen: 03/29/20 Interval history: The patient is a 34-year-old male admitted to the hospital for abrupt onset ataxia, headache, and dizziness. Head CT and MRI confirmed multiple cerebellar infarcts Patient has had improvement of symptoms. He is no longer ataxic, no longer has headache, has no difficulty with swallow and appears to be back to baseline. The patient did have a cardiac echo bubble study which was negative. However given his history of IVDA and multiple infarcts on his MRI finding as well as his age of 34 recommend MAGUE to rule out embolic focus. Exam Vital Signs (past 8 hours): - 03/29/20 08:08 03/29/20 11:09 03/29/20 12:15 Temperature 98.4 F Pulse Rate 79 Respiratory Rate 16 Blood Pressure 124/89 Pulse Oximetry 97 99 97 Oxygen Delivery Method Room Air Oxygen Flow Rate 0 Narrative Exam Narrative: Calm pleasant male in no obvious distress Lungs: Clear to auscultation Cardiac exam: Regular rate and rhythm normal S1-S2 2/6 systolic ejection Abdomen: Soft nontender nondistended, no hepatosplenomegaly Extremities: No edema Objective Labs Result Diagrams: 03/28/20 06:25 03/28/20 06:25 [facility] Medical History (Updated 03/27/20 @ 00:59 by MIRNA Buenrostro) Heroin use disorder, mild, in early remission, abuse 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 34-year-old male admitted to the hospital with an acute cerebellar infarct -head CT, CT angio, MRI of the brain all confirmed inferior and superior your left cerebellar infarct which are acute -no evidence of carotid lesions noted -fasting lipid profile level reveals an LDL of 61 -patient started on dual anti-platelet therapy -patient appears to be hypertensive -cardiac echo with bubble study negative for intracardiac shunt -given high risk due to IVDA, will arrange for transesophageal echo tomorrow as an outpatient at [facility] -MAGUE scheduled for tomorrow 130, patient will go to [facility] and have the MAGUE return to [facility] at which point he will be discharged for probable 2. Hypertension -will start low-dose JUVENCIO-inhibitor 3. History of polysubstance abuse -no evidence of withdrawal -patient planning to go to [place] for inpatient rehab after discharge 4. DVT prophylaxis -continue Lovenox Disposition anticipate discharge home after MAGUE
[2020-03-29 15:53] LABS: HIV 1 & 2 Ab/Ag 4th Gen Combo NEGATIVE (NEGATIVE)
[2020-03-29] MEDS: ACETAMINOPHEN 325 MG TABLET 650 MG PO (17:44)
[2020-03-29] MEDS: ATORVASTATIN 20 MG TABLET 80 MG PO (21:06)
[2020-03-29] MEDS: OXYCODONE/ACETAMINOPHEN 5/325 TABLET 1 TAB PO (21:06)
[2020-03-30] VITALS (8 sets, daily range): BP systolic 118–149; BP diastolic 78–97; PULSE 70–88; RESP 15–19; TEMP 36.3–37; O2SAT 98–99
[2020-03-30] MEDS: SODIUM CHLORIDE 0.9% FLUSH 10 ML IV ×2 (10:24→17:49)
[2020-03-30] MEDS: ENOXAPARIN 40 MG/0.4 ML SYRINGE SUBCUT (10:25)
--- NOTE | 2020-03-30 11:37 | PC.NURSE ---
Day shift: Pt left unit via ALS for MAGUE at [facility]. An tele w/ ALS. He denies any chest pain or nausea at this time. He has been NPO. Midline patent in LUE. Ambulating w/o assistance. ACL team, Kamilla and Wilbert, are taking over care at this time as well. Plan is for Pt to return to [facility] later today. He will then be d/d to a rehab facility to be determined. Dr Vick is aware of Pt leaving at this time as well as blocker automatic Adrian. Left at approx 1142.
--- NOTE | 2020-03-30 14:59 | PM.DS.1 ---
History of Present Illness History of Present Illness Date Patient Seen: 03/27/20 Chief complaint: falling over cant stand Narrative: Written by Lisa MENDOZA: Patient is a 34-year-old male Suraj tracing presented to the emergency room complaining of dizziness. Patient states that last night approximately 7:45 p.m. he suddenly felt the room ?snapped in half, it was like a blackout and I face planted into every piece of furniture as I attempted to walk around at home ?. Patient continued to be symptomatic and then he had his sister drive him to the emergency room 330pm this afternoon. Patient reports that for the last 3 years he has been unable to walk up stairs, run or walk at a fast pace without collapsing. He has been experiencing nausea and vomiting chills and body aches, but he also notes that he is withdrawing from heroin and methamphetamine abuse of 12 years, as he is 11 days clean. Patient was released from detox after 5 days on March 21, 2020 and he is scheduled in April of 2020 to go to [place], [place] for an inpatient detox rehabilitation. Patient reports a history of infectious cellulitis that lead to septicemia of the left forearm that required hospitalization and surgical I&D in the past. Patient notes the only consistent symptom he has had is pain above the right eye pain continues to worsen and not improve with any the pain medication in the emergency room it is constant a sharp throbbing pain sensitivity to light and any motion or changes in position. Patient denies chest pain shortness of breath changes in vision any recent injury trauma or illness, abnormal bruising bleeding or infection, no changes to bowel or bladder, no changes in sensation, denies numbness tingling or muscle weakness. Head CT was negative for intracranial hemorrhage, brain MRI noted multiple small acute infarctions scattered in a superior and inferior cortex of the left cerebellum. Neck MR demonstrated no evidence of aneurysms or bilateral stenosis of carotid & vertebral arteries. Patient's D-dimer, troponin, and lactate were negative. PT 12.7 PTT 31 and INR 1.1 Drug screen was only positive for marijuana. ER consulted neurology concerning MR to rule out infectious (patient to be transferred) versus stroke (patient to be admitted) and echo to be ordered. In the emergency room patient had an NIH score of 2, with upper left arm ataxia on exam. The patient reported a history of IVDA both heroin and methamphetamines. He states he has been clean for 11 days and just got out of rehab. Last night around 7:45 p.m. he rolled over in bed got extremely dizzy. Now when he walks he feels extremely off balance. He denies any weakness he feels nauseated he has vomited a couple times. He denies any fever. However it is complicated because he is going through detox. He has been through detox few times in the past previously on Suboxone but not on any medications this time. Looking to go to a inpatient 4 month stay in [place]. If he remains still he is not dizzy. He also states the over the last 3 years he cannot walk or run without collapsing. He feels like his heart lb get short of breath he collapses. That is not new today. Resting and sitting in the emergency department he denies any shortness of breath. Discharge Providers Provider Date of admission: 03/26/20 22:14 Discharge Date: 03/30/20 Consults: 03/26/20 22:23 Consult to Discharge Planning Routine Comment: Consult to Occupational Therapy Evaluate & Treat Comment: Physician Instructions: Evaluate and treat Consult to Physical Therapy Evaluate & Treat Comment: Physician Instructions: Evaluate and Treat Consult to Speech Therapy Evaluate & Treat Comment: Physician Instructions: Evaluate and treat Discharge provider: Amy Vick DO Summary Hospital Course Discharge Diagnosis: 1. Acute cerebellar infarct, present on admission. Resolved. 2. History of polysubstance IV drug abuse. 3. Elevated blood pressure without diagnosis of hypertension, intermittent, present on admission. Stable. Hospital Course: Suraj Stallings is a 34-year-old male with a past medical history significant for polysubstance IV drug abuse who presented to the ED with dizziness and ataxia. 1. Acute cerebellar infarct, present on admission. Resolved. -CT head without contrast, CTA head and neck and MR stroke protocol demonstrated multiple small acute infarctions scattered in superior and inferior cortex of left cerebellum. No infarction is seen in bilateral cerebral hemispheres, no intracranial bleed, midline shift or mass effect, no area of abnormal contrast enhancement and no hemodynamically significant stenosis or aneurysm in head or neck arteries. -Initial NIH score 2 (left arm ataxia and drift). Patient's left arm ataxia and drift resolved. Continued frequent neurological monitoring. -EKG demonstrated sinus rhythm without acute ischemic changes such as ST elevation or depression. Patient remained in sinus rhythm throughout hospitalization without significant ectopy such as atrial fibrillation. -Allowed for permissive hypertension x 24 hours. -TTE and MAGUE did not demonstrate interatrial shunt, endocarditis or embolic source. Patient does have atrial septal aneurysm possibly provoking embolic event? -Continued aspirin 81 mg daily, Plavix 75 mg daily for 3 weeks, and atorvastatin 20 mg daily at bedtime for stroke prophylaxis. -Continued physical and occupational therapy evaluation and treatment. Patient discharged home without further needs. 2. History of polysubstance IV drug abuse. -Patient previously used IV methamphetamine and heroin. No evidence of methamphetamine or heroin withdrawal throughout hospitalization. Patient was previously in detox for 5 days until 03/21/2020 and he plans to go to inpatient chemical dependency treatment in [place]. 3. Elevated blood pressure without diagnosis of hypertension, intermittent, present on admission. Stable. -Allowed for permissive hypertension x 24 hours. Did not start antihypertensive as patient's average systolic blood pressure remained 110-130 mmHg. -Continued to monitor blood pressure closely and treat if necessary. Recommend continued monitoring outpatient and treatment if blood pressure persistently elevated. Exam Vital Signs (past 8 hours): - 03/30/20 08:04 03/30/20 08:34 03/30/20 11:29 Temperature 98.4 F 98.6 F Pulse Rate 81 88 Respiratory Rate 15 15 Blood Pressure 140/90 118/78 Pulse Oximetry 98 98 99 Oxygen Delivery Method Room Air Oxygen Flow Rate 0 Narrative Exam Narrative: General: Young male sitting in bed and in no acute distress, well-developed, well-nourished, appropriately interactive. HEENT: Normocephalic, atraumatic. External ears without defect. Pupils equal, round, and reactive to light and accommodation. Anicteric sclerae, moist conjunctivae, and no lid lag. Oropharynx free of erythema and cobble stoning with moist mucosa. Poor dentition. Neck: Supple with full range of motion. No jugular venous distension. No bruits. No lymphadenopathy or thyromegaly. Cardiovascular: Regular rate and rhythm without murmurs, rubs, or gallops appreciated. Pulmonary: Clear to auscultation bilaterally without crackles, wheezes, or rhonchi. Normal respiratory effort with no use of accessory muscles. Abdomen: Soft, bowel sounds present, nontender, nondistended. No hepatosplenomegaly or masses appreciated. Extremities: No clubbing, cyanosis, or edema. Skin: Normal temperature, turgor, and texture; no rash, ulcers, or subcutaneous nodules appreciated. Neurological: Cranial nerves grossly intact. Normal muscle strength, tone, and bulk. Reflexes, coordination, and sensory function within normal limits. No gait impairment. Psychiatric: Normal mood and affect. Alert and oriented to person, place, and time. Objective Labs Result Diagrams: 03/28/20 06:25 03/28/20 06:25 Labs: Laboratory Results - last 24 hr 03/27/20 07:00 HIV 1&2 Ab/P24 Ag 4thGn Negative [facility] Medical History (Updated 03/27/20 @ 00:59 by MIRNA Buenrostro) Heroin use disorder, mild, in early remission, abuse History of intravenous drug use in remission Methamphetamine abuse in remission Wound, surgical, infected Surgical History (Updated 03/27/20 @ 00:52 by MIRNA Buenrostro) History of incision and drainage Family History (Updated 03/27/20 @ 00:54 by MIRNA Buenrostro) Father Stroke Hypertension Hyperlipidemia Mother Congestive heart failure Diabetes mellitus Hyperlipidemia Hypertension Social History household members: family Smoking Status: Never smoker alcohol intake: never Discharge Plan Discharge Plan Patient Disposition: Home Provider Discharge Comment: You are being discharged home. You had several small strokes of your left cerebellum. Your echocardiogram did not demonstrate any valvular vegetations (bacterial growths on heart valves) or a hole in your heart. You did have slight aneurysm of the septum of your heart which may potentially provoke blood clots and have caused your strokes. You have been prescribed aspirin 81 mg daily to take indefinitely, Plavix 75 mg daily for 3 weeks, and atorvastatin 20 mg daily at bedtime to prevent future stroke. Please abstain from drug use indefinitely and continue planned inpatient rehab in [place]. Your HIV was negative and your hepatitis panel is pending and should be back in 3-5 days and you may call for results. Discharge orders & Medications Prescriptions: New aspirin 81 mg Tablet,Delayed Release (Dr/Ec) 81 mg PO DAILY Qty: 30 RF: 0 atorvastatin [Lipitor] 20 mg Tablet 20 mg PO BEDTIME Qty: 30 RF: 0 clopidogrel 75 mg Tablet 75 mg PO DAILY Qty: 17 RF: 0 Diet/Activity/Treatments Diet: Low-fat, Low-sodium and Low-cholesterol Activity: Activity as tolerated Visit Report/Discharge Packet Instructions: Progress in Stroke Prevention, Cerebellar Stroke
--- NOTE | 2020-03-30 15:30 | PC.NURSE ---
1530- Pt remains off campus at this time.
[2020-03-30] MEDS: ATORVASTATIN 20 MG TABLET 80 MG PO (17:48)
[2020-03-31 15:23] LABS: HBsAg Screen Negative (Negative); Hepatitis A Antibody IgM Negative (Negative); Hepatitis B Core Antibody IgM Negative (Negative); Hepatitis C Antibody >11.0 s/co ratio (0.0-0.9); Hepatitis C Quant HCV Not Detected IU/mL (.)
== END 2020-03-30 17:00 | disposition home or self-care (01) | DRG 45 ==
LOC: ED 21:24 → AC 22:15
PROVIDERS: Emergency Medicine; Internal Medicine; Admitting Provider Nurse Practitioner Family; Emergency Provider Emergency Medicine; Referring Provider Emergency Medicine; Visit Provider Nurse Practitioner Family
DX: I63.89 Other cerebral infarction (principal); R27.8 Other lack of coordination; F11.11 Opioid abuse, in remission; F15.11 Other stimulant abuse, in remission; I10 Essential (primary) hypertension; Z20.828 Contact with and (suspected) exposure to other viral communicable diseases
CPT/HCPCS: 36415; 36600; 70450; 70496; 70498; 70548; 70553; 71045; 80053; 80061; 80074; 80305; 81003; 82550; 82805; 82962; 83036; 83605; 83735; 83880; 84145; 84443; 84484; 85025; 85379; 85610; 85651; 85730; 86140; 87040; 87389; 87491; 87522; 87591; 87635; 93005; 93010; 93306; 96361; 96374; 96375; 97116; 97161; 97165; 97535; 99284; A9579; J1650; J2060; J2405; Q9967